=== PATIENT | male | born 1945 | race Caucasian/White ===

== ENCOUNTER 2020-11-29 10:24 | Outpatient (CLI) | payer MEDICARE, BC, SELFPAY ==
--- NOTE | 2020-11-29 10:30 | ECG_ITS ---
Measurements Intervals [place] Rate: 50 P: CT: 0 QRS: 35 QRSD: 86 T: 40 QT: 423 QTc: 389 Interpretive Statements ATRIAL FIBRILLATION WITH SLOW VENTRICULAR RESPONSE BASELINE ARTIFACT- I, II, III, AVR, AVL, AVF, V1-V6 ABNORMAL ECG Electronically Signed On 11-29-2020 10:47:43 CDT by Reji Trevizo D.O.
[2020-11-29 11:10] LABS: Anion Gap 5 mmol/L (8-16); Blood Urea Nitrogen 15 mg/dL (9-20); Calcium 9.6 mg/dL (8.4-10.2); Carbon Dioxide 31 mmol/L (22-30); Chloride 101 mmol/L (98-107); Estimated Glomerular Filt Rate > 60; Glucose 90 mg/dL (65-110); Potassium 5.1 mmol/L (3.4-5.0); Sodium 137 mmol/L (137-145)
== END 2020-11-29 10:25 | disposition home or self-care (01) ==
PROVIDERS: Anesthesiology; PCP Physician Assistant; Visit Provider Urology
DX: Z01.818 Encounter for other preprocedural examination (principal); Z79.899 Other long term (current) drug therapy; E78.00 Pure hypercholesterolemia, unspecified; R94.31 Abnormal electrocardiogram [ECG] [EKG]
CPT/HCPCS: 36415; 80048; 93005

== ENCOUNTER 2020-12-01 02:45 | Day surgery (SDC) | payer MEDICARE, BC, SELFPAY ==
[2020-11-28 13:40] VITALS: BMI 29.9
--- NOTE | 2020-11-30 12:36 | WPDANESEPPF ---
Anes - Initial Pre Proc Eval Procedure: Operation Date: 12/01/20 11:30 Proposed Procedures p Cystoscopy, Bilateral Retrograde Pyelography, Right Ureteroscopy, Right Ureteral Stent Insertion - Juanito Chavez MD Date/Time: 11/30/20 12:36 Surgeon: Juanito Chavez MD Pre Op Diagnosis: Hydronephrosis Patient Data Age: 75 Gender: M Height: 1.75 m Weight: 91.81 kg Allergies Allergy/AdvReac Type Severity Reaction Status Date / Time No Known Allergies Allergy Verified 12/01/20 10:06 Home Medications Medication Instructions Recorded Confirmed Type acetaminophen [Tylenol Extended 1,300 mg PO Q8H PRN 11/28/20 12/01/20 History Release] allopurinol 100 mg BID 11/28/20 12/01/20 History ascorbic acid (vitamin C) [Vitamin 500 mg PO DAILY 11/28/20 12/01/20 History C] atezolizumab 1,200 mg IV ONCE 11/28/20 12/01/20 History calcipotriene 1 applic TOPICAL DAILY PRN 11/28/20 12/01/20 History cholecalciferol (vitamin D3) 50 mcg PO DAILY 11/28/20 12/01/20 History clobetasol-emollient [Temovate E] 1 applic TOPICAL DAILY PRN 11/28/20 12/01/20 History furosemide 40 mg DAILY 11/28/20 12/01/20 History garlic 1,000 mg PO DAILY 11/28/20 12/01/20 History lutein 20 mg PO DAILY 11/28/20 12/01/20 History multivitamin [Multi-Vitamin] 1 tablet PO DAILY 11/28/20 12/01/20 History omega-3 fatty acids-vitamin E 1 cap DAILY 11/28/20 12/01/20 History [Fish Oil] ondansetron 4 mg PO Q6H PRN 11/28/20 12/01/20 History simvastatin 40 mg PO HS 11/28/20 12/01/20 History spironolactone 25 mg BID 11/28/20 12/01/20 History temozolomide [Temodar] See Rx Instructions .ROUTE .COMPLEX 11/28/20 12/01/20 History temozolomide [Temodar] See Rx Instructions .ROUTE .COMPLEX 11/28/20 12/01/20 History vitamin B complex 1 tablet PO DAILY 11/28/20 12/01/20 History vitamin E 400 unit PO DAILY 11/28/20 12/01/20 History Patient hx anesthesia problems: none Family hx anesthesia problems: none [facility] Past Medical History Medical History (Updated 11/30/20 @ 12:37 by Fede Fernandes DO) History of colon cancer Hyperlipidemia Hypertension Surgical History Surgical History (Updated 11/30/20 @ 12:37 by Fede Fernandes DO) History of surgery of liver partial liver removed and ablation due to metastasis of colorectal CA History of tonsillectomy Social History Social History Smoking status: Never smoker Second hand tobacco smoke exposure: No Alcohol intake: never Substance use: never Substance use type: does not use Living arrangements: with family Spiritual care concerns: No Anes - Eval Final PreProcedure Day of Procedure 11/30/20 12:36 Patient weight: overweight Heart: regular rate and rhythm Lungs: clear to auscultation and normal air movement Airway: Mallampati scale class II Neurological: alert and oriented Last oral intake: >/= 8 hours ASA classification: III Emergent: no Anesthetic plan: proceed Anesthesia type and monitoring: general LMA and standard monitoring Informed Consent: The patient's anesthetic plan and its attendant risks and benefits were discussed with the patient/family/POA. Questions were solicited and answers provided to the satisfaction of the patient/family/POA.
[2020-12-01] VITALS (8 sets, daily range): BP systolic 137–154; BP diastolic 65–78; PULSE 35–63; RESP 12–20; TEMP 36.2–36.4; O2SAT 98–100
--- NOTE | ~2020-12-01 | XR_ITS ---
EXAMINATION: XR retrograde pyelo w/stent BI EXAM DATE: 12/01/2020 13:58 INDICATION: RT Side Stent Bilat Retrograde . TECHNIQUE: Fluoroscopy used during XR retrograde pyelo w/stent BI performed by Dr. Juanito Chavez MD, urologist. The radiologist Tesfaye Reyes M.D. dictating this report of the image(s) available wa s not present for the procedure. Total fluoroscopic time of 129 seconds. The DAP for this procedure was 2209 radcm2. A total of 158 images sent to PACS from the exam. Cine run(s) available for revie w. FINDINGS: Right ureter was cannulated, injected. The distal 1/3rd of the right ureter is very narrow in caliber, the proximal 2/3rds has moderate dilation, and there is moderate caliectasis, hydronephr osis. Left ureter was then injected, distal most aspect is also very narrow with mild hydroureteronep hrosis proximal to this. Correlate with procedure note. IMPRESSION: Moderate right, mild left hydroureteronephrosis. Reviewed, dictated and finalized at location B.
--- NOTE | 2020-12-01 06:52 | WPDHPUPDATE1 ---
History and Physical Update Update Date/Time: 12/01/20 06:52 History and Physical has been reviewed, including an updated exam of the patient. There are NO changes in the patient's condition. Risks, benefits, and alternatives have been discussed and questions answered. Patient agrees to proceed with procedure.
[2020-12-01] MEDS: LACTATED RINGERS 1,000 ML 30 ML IV CONT (10:19)
--- NOTE | 2020-12-01 10:46 | SUR.PREOP ---
pt informed delay in procedure.
[2020-12-01] MEDS: ceFAZolin 2 GM/D5W 50 ML 2 GM/50 ML BAG IVPB (13:22)
[2020-12-01] MEDS: LIDOCAINE HCL 2% GEL UROJET 10 ML PKG MUCOUS MEM (13:53)
--- NOTE | 2020-12-01 14:05 | P.OP_ITS ---
Procedure Note - Detailed Date of Procedure 12/01/20 Pre-op Diagnosis Right hydronephrosis Post-op Diagnosis other (Right hydronephrosis due to extrinsic compression of the distal right ureter) Procedure Performed Cystoscopy, bilateral retrograde pyelography, right ureteroscopy and right ureteral stent placement Surgeon Juanito Chavez MD Anesthesia general Description of Procedure Patient brought to the operative suite where he has prepped and draped in routine sterile fashion while dorsal lithotomy position after the uneventful induction of a general LMA anesthetic. Cystoscopy is undertaken with a 19 F rigid cystoscope. No urethral strictures and only minimal hyperplasia of the prostate without small median lobe. Bladder mucosa is normal without hyperemia. There was no intravesical foreign body or neoplasm. He has a single orthotopic ureteral orifice with clear efflux bilaterally. Eight F bulb tip catheter was used to obtain bilateral retrograde pyelograms. The left ureteral pyelogram is normal without points of obstruction or filling defect. The right ureteral g shows an area narrowing in the distal right ureter. There were no filling defects at that site. This has the appearance of extrinsic compression or retroperitoneal fibrosis is the cause for obstruction. 0.035 in glidewire was advanced in the right renal pelvis. I attempted to dilate the distal ureter with an 8 F 10 F dilator but met with difficulty. This is a narrowing appears to be quite dense and woody. attempted to pass a 7.5 F flexible ureteral scope beyond the point of obstruction without success. Rigid ureteroscopy with a semi-rigid ureteral scope revealed smooth considered during without mucosal lini ng approach mint, consistent with extrinsic compression. This point and placed a 6 F stent on the right with a proximal coil in the renal pelvis and distal coil in the bladder. Scopes was removed he was taken recovery room good condition. Estimated Blood Loss 0 Drains Yes ( 6F right ureteral stent) Packing No Pathology none sent Complications No immediate complications Condition stable Disposition PACU
== END 2020-12-01 15:44 | disposition home or self-care (01) ==
PROVIDERS: PCP Physician Assistant; Visit Provider Urology
PROC: (CPT 52352; principal; 2020-12-01 11:30)
DX: N13.30 Unspecified hydronephrosis (principal); I10 Essential (primary) hypertension; E78.5 Hyperlipidemia, unspecified; Z85.038 Personal history of other malignant neoplasm of large intestine
CPT/HCPCS: 52332; 74420; A9270; C1758; C1769; C2617; J0690; J2250; J2405; J2704; J3010; J7120; Q9966

== ENCOUNTER 2021-04-17 07:40 | Outpatient (CLI) | payer MEDICARE, BC, SELFPAY ==
[2021-04-17 10:02] LABS: Anion Gap 9 mmol/L (8-16); Blood Urea Nitrogen 13 mg/dL (9-20); Calcium 9.2 mg/dL (8.4-10.2); Carbon Dioxide 25 mmol/L (22-30); Chloride 98 mmol/L (98-107); Estimated Glomerular Filt Rate > 60; Glucose 97 mg/dL (65-110); Potassium 4.6 mmol/L (3.4-5.0); Sodium 132 mmol/L (137-145)
== END 2021-04-17 07:41 | disposition home or self-care (01) ==
LOC: ANHSURGERY 07:42
PROVIDERS: Anesthesiology; PCP Internal Medicine Medical Oncology; Visit Provider Urology
DX: Z01.818 Encounter for other preprocedural examination (principal); I10 Essential (primary) hypertension
CPT/HCPCS: 36415; 80048

== ENCOUNTER 2021-04-20 01:16 | Day surgery (SDC) | payer MEDICARE, BC, SELFPAY ==
--- NOTE | 2021-04-11 16:20 | PM.HPGS ---
History of Present Illness History of Present Illness Consent: Risks, benefits, and alternatives have been discussed and questions answered. Patient agrees to proceed with procedure. 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 This obstruction is managed with indwelling ureteral stent since 11/2020. He presents today for his first ureteral stent exchange. Review of Systems Cardiovascular: Cardiovascular: Denies chest pain, Denies lightheadedness, Denies palpitations and Denies dyspnea Respiratory: Respiratory: Denies dyspnea Gastrointestinal: Gastrointestinal: Denies diarrhea, Denies nausea and Denies vomiting Genitourinary: Genitourinary: Denies hematuria and Denies dysuria Endocrine: Endocrine: Denies palpitations PMFSH Past Medical History Medical History History of colon cancer Hyperlipidemia Hypertension Surgical History Surgical History History of surgery of liver partial liver removed and ablation due to metastasis of colorectal CA History of tonsillectomy Social History Social History Smoking status: Never smoker Second hand tobacco smoke exposure: No Alcohol intake: never Substance use: never Substance use type: does not use Spiritual care concerns: No Meds Home Medications and Allergies Home Medications Medication Instructions Recorded Confirmed Type acetaminophen 1,300 mg PO Q8H PRN 11/28/20 12/01/20 History allopurinol 100 mg BID 11/28/20 12/01/20 History ascorbic acid (vitamin C) [Vitamin 500 mg PO DAILY 11/28/20 12/01/20 History C] atezolizumab 1,200 mg IV ONCE 11/28/20 12/01/20 History calcipotriene 1 applic TOPICAL DAILY PRN 11/28/20 12/01/20 History cholecalciferol (vitamin D3) 50 mcg PO DAILY 11/28/20 12/01/20 History clobetasol-emollient 1 applic TOPICAL DAILY PRN 11/28/20 12/01/20 History furosemide 40 mg DAILY 11/28/20 12/01/20 History garlic 1,000 mg PO DAILY 11/28/20 12/01/20 History lutein 20 mg PO DAILY 11/28/20 12/01/20 History multivitamin 1 tablet PO DAILY 11/28/20 12/01/20 History omega-3 fatty acids-vitamin E 1 cap DAILY 11/28/20 12/01/20 History ondansetron 4 mg PO Q6H PRN 11/28/20 12/01/20 History simvastatin 40 mg PO HS 11/28/20 12/01/20 History spironolactone 25 mg BID 11/28/20 12/01/20 History temozolomide See Rx Instructions .ROUTE .COMPLEX 11/28/20 12/01/20 History temozolomide [Temodar] See Rx Instructions .ROUTE .COMPLEX 11/28/20 12/01/20 History vitamin B complex 1 tablet PO DAILY 11/28/20 12/01/20 History vitamin E 400 unit PO DAILY 11/28/20 12/01/20 History cephalexin 500 mg PO Q8H #9 cap 12/01/20 Rx hydrocodone-acetaminophen 1 - 2 tablet PO Q6H PRN #20 tablet 12/01/20 Rx Allergies Allergy/AdvReac Type Severity Reaction Status Date / Time No Known Allergies Allergy Verified 12/01/20 10:06 Exam Const: General: no acute distress Resp: Effort & Inspection: normal respiratory effort GI: Inspection: non-distended GI Palp: No abdominal tenderness and No Guarding due to palpation present (GI) Auscultation: normal bowel sounds Assessment and Plan Assessment and plan (1) Hydronephrosis, right: Code(s): N13.30 - Unspecified hydronephrosis Status: Acute Assessment and Plan: Cystoscpy, right ureteroscopy with stent removal and replacement.
[2021-04-14 13:18] VITALS: BMI 26.7
--- NOTE | 2021-04-14 13:25 | PC.NURSE ---
Report to the Outpatient Waiting Room, entrance under the green pavilion located off [facility], at time _0630 on date __04/20/21 . OR Time: . - You and your visitor will be asked a series of questions to screen for COVID 19 for your protection. - A mask is required within the hospital. - Only one visitor is allowed at this time. Patient visitors will be guided where to wait when not with patient. Preoperative COVID Testing Requirements: No COVID Test needed if: (proof is required; if not received patient will have Rapid Test prior to entry) - Patient has received COVID Vaccine at least 14 days prior to procedure date or - Patient has positive COVID test result within last 90 days of surgery date. COVID Test needed if above criteria is not met If not COVID vaccinated a COVID test must be conducted within 72 hours of surgery and patient is asked to isolate self from time of testing until procedure. You will go to the [facility] for your COVID testing. The [facility] site is located at the corner of [address] from [facility]. You will only be called if COVID results are positive and your surgeon may reschedule your elective surgery date. Patients may have clear liquids (water, carbonated beverages, clear teas, apple juice) until 3 hours prior to surgery with a maximum of 20 ounces. - No food from midnight until time of surgery - Infants may have breast milk until 4 hours before surgery, formula 6 hours prior to surgery. - Children will be allowed to drink immediately following surgery. If applicable, please bring a bottle or sippy cup to assist with drinking. Juice, water, soda, and popsicles are readily available. For infants on formula, please bring formula the day of surgery. Pacifiers are allowed. Take the following medications with a SIP of water the morning of surgery: __NONE Medications to discontinue per physician ____ALL VITAMINS AND SUPPLEMENTS 3 DAYS PRE OP Date to take last dose___04/16/21 Please no make-up, nail italian, hairspray, perfume, deodorant, or body powder the day of surgery. No jewelry (including any body piercings) or valuables the day of surgery, leave them at home. Please take a shower or bath the night before, or the morning of, surgery with an antibacterial soap. Wear comfortable, loose fitting clothing. Children are encouraged to wear pajamas. - Jewelry must be removed prior to entering the operating room. Rings and piercings that are not removed may be cut off. - The hospital will not accept responsibility for valuables. - Please leave all valuables, including medications, at home the day of surgery. If you are going home after surgery, a licensed pile driver engineer must drive you home. - NO public transportation without another adult. - We recommend that an adult stay with you for 24 hours following discharge. - We also recommend that you do not drive, make important decision, drink alcoholic beverages, or take any drugs that were not prescribed by your health care provider for at least 24 hours after your discharge time. For Pediatric surgeries, we recommend two adults accompany the child home (only one inside the building at this time). Follow any additional instructions given to you from your surgeon. Telephone instructions given to PATIENT and asked if any additional questions and then verbalized understanding. Patient advised to call surgeon office or pre surgery nurse liaison [phone] if any additional questions.
--- NOTE | ~2021-04-20 | XR_ITS ---
EXAMINATION: XR stent kub - surgery EXAM DATE: 04/20/2021 09:06 INDICATION: Right stent replacement. TECHNIQUE: Fluoroscopy used during XR stent kub - surgery performed by Dr. Juanito Chavez MD. R adiologist was not present for the imaging or procedure. Total fluoroscopic time of 28 seconds. The DAP for this procedure was 0.3 mGym2. A total of 6 images sent to PACS from the exam. FINDINGS: Images taken during staged of right ureteral stent replacement. Correlate with procedure note. IMPRESSION: Fluoroscopy used during right ureteral stent replacement. Reviewed, dictated and finalized at location B. 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
--- NOTE | 2021-04-20 06:12 | WPDHPUPDATE1 ---
History and Physical Update Update Date/Time: 04/20/21 06:12 History and Physical has been reviewed, including an updated exam of the patient. There are NO changes in the patient's condition. Risks, benefits, and alternatives have been discussed and questions answered. Patient agrees to proceed with procedure.
--- NOTE | 2021-04-20 07:16 | P.PNAN_ITS ---
Anes - Initial Pre Proc Eval Procedure: Operation Date: 04/20/21 08:30 Proposed Procedures p Cystoscopy with Right Stent Exchange - Juanito Chavez MD Date/Time: 04/20/21 07:16 Surgeon: Juanito Chavez MD Pre Op Diagnosis: right hydronephrosis Patient Data Age: 75 Gender: M Height: 1.75 m Weight: 82.1 kg Allergies Allergy/AdvReac Type Severity Reaction Status Date / Time No Known Allergies Allergy Verified 04/20/21 06:56 Home Medications Medication Instructions Recorded Confirmed Type acetaminophen 1,300 mg PO Q8H PRN 11/28/20 04/20/21 History allopurinol 100 mg PO BID 11/28/20 04/20/21 History ascorbic acid (vitamin C) [Vitamin 500 mg PO DAILY 11/28/20 04/20/21 History C] calcipotriene 1 applic TOPICAL DAILY PRN 11/28/20 04/20/21 History cholecalciferol (vitamin D3) 50 mcg PO DAILY 11/28/20 04/20/21 History clobetasol-emollient 1 applic TOPICAL DAILY PRN 11/28/20 04/20/21 History furosemide 40 mg PO DAILY 11/28/20 04/20/21 History garlic 1,000 mg PO DAILY 11/28/20 04/20/21 History lutein 20 mg PO DAILY 11/28/20 04/20/21 History multivitamin 1 tablet PO DAILY 11/28/20 04/20/21 History omega-3 fatty acids-vitamin E 1 cap PO DAILY 11/28/20 04/20/21 History simvastatin 40 mg PO HS 11/28/20 04/20/21 History spironolactone 25 mg PO BID 11/28/20 04/20/21 History vitamin B complex 1 tablet PO DAILY 11/28/20 04/20/21 History vitamin E 400 unit PO DAILY 11/28/20 04/20/21 History Patient hx anesthesia problems: none Family hx anesthesia problems: none Results Review: All pre-operative results and documents have been reviewed as part of the pre-operative evaluation. [facility] Past Medical History Medical History History of colon cancer Hyperlipidemia Hypertension Surgical History Surgical History History of surgery of liver partial liver removed and ablation due to metastasis of colorectal CA History of tonsillectomy Social History Social History Smoking status: Never smoker Second hand tobacco smoke exposure: No Alcohol intake: never Substance use: never Substance use type: does not use Living arrangements: with family Spiritual care concerns: No Anes - Eval Final PreProcedure Day of Procedure 04/20/21 07:16 Patient weight: overweight Heart: regular rate and rhythm Lungs: clear to auscultation and normal air movement Airway: Mallampati scale class II Neurological: alert and oriented Last oral intake: >/= 8 hours ASA classification: II Emergent: no Anesthetic plan: proceed Anesthesia type and monitoring: general GIVS and standard monitoring Results Review: All pre-operative results and documents have been reviewed as part of the pre-operative evaluation. Informed Consent: The patient's anesthetic plan and its attendant risks and benefits were discussed with the patient/family/POA. Questions were solicited and answers provided to the satisfaction of the patient/family/POA.
[2021-04-20 07:18] VITALS: BP 116/78; PULSE 74; RESP 20; TEMP 36.3; O2SAT 100; BMI 26.4
[2021-04-20] MEDS: LACTATED RINGERS 1,000 ML 30 ML IV CONT (07:28)
[2021-04-20] MEDS: ceFAZolin 2 GM/D5W 50 ML 2 GM/50 ML BAG IVPB (08:29)
[2021-04-20] MEDS: LIDOCAINE HCL 2% GEL UROJET 10 ML PKG MUCOUS MEM (08:48)
[2021-04-20] MEDS: BUPIVACAINE/EPINEPHRINE 0.25% 10 ML VIAL INFILTRATE (08:48)
[2021-04-20] MEDS: NEOMYCIN/POLYMYXIN/BACITRACIN OINTMENT 15 GM TUBE 1 APPLIC TOPICAL (08:57)
--- NOTE | 2021-04-20 09:03 | W.PM.PROC2 ---
Procedure Note - Detailed Date of Procedure 04/20/21 Pre-op Diagnosis Right hydronephrosis, scrotal wall mass Post-op Diagnosis same Procedure Performed 1. Cystoscopy with right ureteral stent exchange 2. Excision of a scrotal wall mass Surgeon Juanito Chavez MD Anesthesia MAC Findings 1. Minimal encrustation on the indwelling stent which was placed in November 2020 2. 3 cm solid right scrotal wall mass. Description of Procedure Patient is brought to the operative suite prepped draped in routine sterile fashion while in dorsal lithotomy position after the uneventful administration of systemic sedation. 0.25% Marcaine with epinephrine is injected around this mass involving the right lateral scrotal wall. An elliptical incision is made around this mass and using electrocautery the mass is dissected in its entirety without encroaching into the tunica vaginalis. Hemostasis obtained with electrocautery and the skin is closed with a running 4-0 Vicryl. I then placed a 19 F rigid cystoscope. There was no urethral stricture and minimal prostatic hyperplasia. There is slight edema around the right ureteral orifice where his right ureteral stent was noted. There was no intravesical neoplasm. Stent is removed and a new 6 F variable length stent is positioned the proximal coil in the renal pelvis and distal coil in the bladder. There was minimal encrustation of the stent after having placed 4 months ago. I will plan on replacing the stent again in 6 months Estimated Blood Loss 0 Drains Yes Packing No Pathology yes Complications No immediate complications Condition stable Disposition PACU
[2021-04-20 09:15] VITALS: BP 96/48; PULSE 88; RESP 20; O2SAT 100
[2021-04-20 09:45] VITALS: BP 112/72
[2021-04-20 10:30] VITALS: BP 120/62
== END 2021-04-20 10:55 | disposition home or self-care (01) ==
PROVIDERS: PCP Physician Assistant; Visit Provider Urology
PROC: (CPT 52352; principal; 2021-04-20 08:30)
DX: C7B.09 Secondary carcinoid tumors of other sites (principal); C26.9 Malignant neoplasm of ill-defined sites within the digestive system; N13.30 Unspecified hydronephrosis; I10 Essential (primary) hypertension; E78.5 Hyperlipidemia, unspecified; Z85.038 Personal history of other malignant neoplasm of large intestine; Z85.05 Personal history of malignant neoplasm of liver; Z79.891 Long term (current) use of opiate analgesic
CPT/HCPCS: 52332; 11624; 88304; 88342; A9270; C1769; C2617; J0690; J2704; J7120

== ENCOUNTER 2021-09-17 03:50 | Inpatient (IN) | payer MEDICARE, BC, SELFPAY ==
[2021-09-17] VITALS (8 sets, daily range): BP systolic 105–118; BP diastolic 60–73; PULSE 65–78; RESP 16–18; TEMP 36.3–36.8; O2SAT 96–99; BMI 28.1
--- NOTE | ~2021-09-17 | XR_ITS ---
XR chest 1V portable DATE: 09/17/2021 06:01 INDICATION: Colon cancer TECHNIQUE: Portable upright AP chest on 09/17/2021 at 0556 hours COMPARISON: None FINDINGS: Right Port-A-Cath catheter tip situated near the superior cavoatrial junction. There is mild infiltrate or atelectasis in the right mid and both lower lung zones. Cannot exclude mi nimal pleural effusions. No pulmonary vascular congestion or pneumothorax. Heart size is borderline. Is aortic calcification and unfolding. Diffuse osteopenia. IMPRESSION: Mild infiltrate or atelectasis in right mid and both lower lung zones Right Port-A-Cath Reviewed, dictated and finalized at location A. IMPRESSION: Mild infiltrate or atelectasis in right mid and both lower lung zon es Right Port-A-Cath
--- NOTE | ~2021-09-17 | US_ITS ---
EXAMINATION: US pelvic complete DATE: 09/18/2021 08:14 INDICATION: Bladder hematoma. TECHNIQUE: Multiple grayscale and Doppler ultrasound images of the pelvis were obtained. COMPARISON: None FINDINGS: There is a Chan catheter in the bladder. There is gas in the bladder lumen. There are echo es adjacent to the Chan catheter. IMPRESSION: 1. Echoes adjacent to the Chan catheter, which may be artifact and/or hematoma. Reviewed, dictated and finalized at location A. IMPRESSION: 1. Echoes adjacent to the Chan catheter, which may be artifact and/or hematoma .
--- NOTE | 2021-09-17 04:09 | PC.NURSE ---
This patient, Flavio Méndez, was admitted to [facility] Surg Room 320-01. Patient/family oriented to hospital policies and general routines including ID bracelet, bed and alarms, visiting hours, pain management, procedures, bathroom and other care routines, personal items, smoking policy, room service/diet, and visiting hours. Information on how to activate the Rapid Response Team has been discussed. Patient/Family are encouraged to report perceived risks to care and to ask questions if they do not understand what they are told or what they should do.
--- NOTE | 2021-09-17 04:44 | PM.IMHP ---
H&P: HPI History of Present Illness Date/Time: 09/17/21 04:44 Chief Complaint: Syncope Narrative: This is a 76-year-old male with past medical history significant for colon CA patient is status post nephrostomy due to extrinsic mass compression of ureters. Patient had been recently discharged from [facility]. Patient with significant weight loss and generalized weakness. Today patient had a syncopal episode and was taken back to the emergency room where he was found to have elevated creatinine. Patient is being transferred to our hospital for urology consult. Patient had a temperature of 102?. States that has no recollection of events. Preliminary workup is significant for hemoglobin of 8, hematocrit is 26, MCV is 99, creatinine is 1.9. Patient denies any pain at this time. Review of Systems Review of Systems: Generalized weakness, weight loss. Constitutional: Constitutional: Reports fatigue, Reports fever(s), Reports lethargy and Reports weakness Eyes: Eyes: Denies change in vision ENT: Denies dysphagia, Denies vertigo, Denies dizziness and Denies odynophagia Cardiovascular: Cardiovascular: Reports syncope Respiratory: Respiratory: Denies cough Gastrointestinal: Gastrointestinal: Denies abdominal pain, Denies dyspepsia and Denies heartburn Genitourinary: Genitourinary: Reports hematuria Musculoskeletal: Musculoskeletal: Denies arthralgias Integumentary/Breasts: Skin/Breast: Denies rash Neurologic: Denies focal weakness and Denies Sensory deficit (Neuro) Psychiatric: Psychiatric: Reports no additional psychiatric complaints and Reports as per HPI Endocrine: Endocrine: Denies cold intolerance, Denies fatigue, Denies flushing, Denies heat intolerance, Denies polyphagia, Denies polydipsia and Denies palpitations Hematologic/Lymphatic: Hematologic/Lymphatic: Reports no additional hematologic/lymphatic complaints and Reports as per HPI Allergic/Immunologic: Allergic/Immunologic: Reports no additional allergic/immunologic complaints and Reports as per HPI PMFSH Past Medical History Medical History (Updated 09/17/21 @ 05:25 by Ronaldo Rosales MD) History of colon cancer Hyperlipidemia Hypertension Surgical History Surgical History (Updated 09/17/21 @ 05:22 by Ronaldo Rosales MD) History of surgery of liver partial liver removed and ablation due to metastasis of colorectal CA History of tonsillectomy Social History Social History Smoking status: Never smoker Second hand tobacco smoke exposure: No Alcohol intake: never Substance use: never Substance use type: does not use Gender identity (if verbalized by the patient): Male Sexual Orientation (if Verbalized by the Patient): Straight or Heterosexual Spiritual care concerns: No Meds Home Medications and Allergies Home Medications Medication Instructions Recorded Confirmed Type acetaminophen 650 mg 1,300 mg PO Q8H PRN Pain 11/28/20 04/20/21 History tablet,extended release allopurinol 100 mg tablet 100 mg PO BID 11/28/20 04/20/21 History ascorbic acid (vitamin C) 500 mg 500 mg PO DAILY 11/28/20 04/20/21 History tablet (Vitamin C) calcipotriene 0.005 % topical cream 1 applic topical DAILY PRN Skin 11/28/20 04/20/21 History Irritation clobetasol-emollient 0.05 % 1 applic topical DAILY PRN Skin 11/28/20 04/20/21 History topical cream Irritation lutein 20 mg capsule 20 mg PO DAILY 11/28/20 04/20/21 History multivitamin 1 tablet PO DAILY 11/28/20 04/20/21 History simvastatin 40 mg tablet 40 mg PO HS 11/28/20 04/20/21 History spironolactone 25 mg tablet 25 mg PO BID 11/28/20 04/20/21 History vitamin B complex 1 tablet PO DAILY 11/28/20 04/20/21 History vitamin E 400 unit capsule 400 unit PO DAILY 11/28/20 04/20/21 History albuterol sulfate 90 mcg/actuation 2 puff inhalation Q4H PRN 09/17/21 09/17/21 History aerosol inhaler SOB/Wheezing aspirin 81 mg
[2021-09-17 04:45] LABS: Basophils Percent Auto 0.3 % (0.2-1.2); Eosinophils Absolute Auto 0.2 K/mm3 (0-0.3); Eosinophils Percent Auto 1.5 % (0-4.4); Hematocrit 26.1 % (42.0-52.0); Hemoglobin 8.1 g/dL (14.0-18.0); Immature Granulocyte Absolute 0.24 K/mm3 (0.00-0.031); Immature Granulocyte Percent A 1.9 % (0-0.5); Lymphocytes Percent Auto 8.1 % (18.3-44.2); Mean Corpuscular Hemoglobin 30.9 pg (26-34); Mean Corpuscular Volume 99.6 fl (80-100); Mean Platelet Volume 9.2 fl (7.4-10.4); Monocytes Absolute Auto 1.1 K/mm3 (0.1-0.6); Monocytes Percent Auto 9.1 % (2.6-8.5); Neutrophils Absolute Auto 9.8 K/mm3 (1.3-6.7); Neutrophils Percent Auto 79.1 % (45.5-73.1); Platelet Count Result 174 k/mm3 (150-375); Red Blood Count 2.62 M/mm3 (4.6-6.20); Red Cell Distribution Width 18.5 % (11.5-14.5); White Blood Count 12.3 K/mm3 (4.5-10.0)
[2021-09-17 04:55] LABS: INR 1.3; Prothrombin Time 15.7 Seconds (11.1-14.7)
[2021-09-17 04:56] LABS: Partial Thromboplastin Time 42.6 SECONDS (22.3-36.8)
[2021-09-17 04:58] LABS: Alanine Aminotransferase 17 U/L (6-50); Albumin Level 2.7 g/dL (3.5-5.1); Alkaline Phosphatase 105 U/L (38-126); Anion Gap 0 mmol/L (8-16); Aspartate Amino Transferase 48 U/L (17-59); Bilirubin,Total 0.3 mg/dL (0.2-1.3); Blood Urea Nitrogen 25 mg/dL (9-20); Calcium 8.3 mg/dL (8.4-10.2); Carbon Dioxide 35 mmol/L (22-30); Chloride 96 mmol/L (98-107); Estimated Glomerular Filt Rate 35; Glucose 88 mg/dL (65-110); Potassium 4.4 mmol/L (3.4-5.0); Sodium 131 mmol/L (137-145)
[2021-09-17] MEDS: DEXTROSE 5%/0.45% SOD CHL 1,000 ML 100 ML IV CONT ×2 (05:39→22:12)
[2021-09-17] MEDS: VITAMIN E 400 UNIT CAPSULE PO (08:42)
[2021-09-17] MEDS: ASPIRIN 81 MG ENTERIC TABLET PO (08:43)
[2021-09-17] MEDS: MAGNESIUM OXIDE 400 MG TABLET 800 MG PO ×2 (08:43→17:42)
[2021-09-17] MEDS: OMEGA 3 POLYUNSAT FATTY ACIDS 1 GM CAP PO (08:43)
[2021-09-17] MEDS: MULTIVITAMINS THERAPEUTIC TAB (*BKC) 1 TABLET PO (08:43)
[2021-09-17] MEDS: CYPROHEPTADINE HCL 4 MG TABLET PO ×2 (08:43→17:43)
[2021-09-17] MEDS: PANTOPRAZOLE 40 MG TABLET PO ×2 (08:43→17:43)
[2021-09-17] MEDS: FINASTERIDE 5 MG TABLET PO (08:43)
[2021-09-17] MEDS: allopurinoL 100 MG TABLET 200 MG PO (08:43)
[2021-09-17] MEDS: CHOLECALCIFEROL 1,000 UNITS TABLET 2000 UNITS PO (08:43)
[2021-09-17] MEDS: ASCORBIC ACID 500 MG TABLET PO (08:43)
[2021-09-17] MEDS: VITAMIN B COMPLEX CAPSULE 1 CAP PO (08:44)
[2021-09-17] MEDS: SPIRONOLACTONE 25 MG TABLET PO ×2 (08:44→17:42)
[2021-09-17] MEDS: ACETAMINOPHEN 500 MG TABLET 1000 MG BY MOUTH (11:25)
[2021-09-17 11:55] LABS: Hematocrit 24.9 % (42.0-52.0); Hemoglobin 7.8 g/dL (14.0-18.0)
--- NOTE | 2021-09-17 12:04 | WPDURCON ---
Assessment and Plan Assessment and plan (1) Hematuria: Code(s): R31.9 - Hematuria, unspecified Status: Acute Assessment and Plan: History of radiation to pelvis, bilateral ureteral stents, pelvic malignancy, urinary retention and urinary tract infection all of which could be contributory Will need cystoscopy to further evaluate, for now continue CBI as below [address] Chan catheter was placed by me at the bedside. Initial return of greater than 1 L of bloody urine and about 50 cc of clot irrigated out of the bladder. After hand irrigation and clot was removed no further clot returned urine was very light pink. Chan connected to continuous bladder irrigation at a slow rate and was light pink. Discussed with Nursing to titrate rate to keep urine light pink or light red. If there is clot in catheter seems to stop draining would stop The inflow and hand irrigate to dislodge any clot. IF catheter patency is restored restart CBI. If patency cannot be restored notify our service. (2) AJITH (acute kidney injury): Code(s): N17.9 - Acute kidney failure, unspecified Status: Acute Assessment and Plan: Creatinine elevated 1.9. Patient had bilateral hydronephrosis in the setting of clot retention and ureteral stents on CT from [facility] last night. Suspect this could be lower tract obstruction and not stent malfunction given stents were placed in June and typically only changed every 6 months. For now would monitor creatinine trend with a patent Chan catheter in place. If down trends, likely can avoid stent exchange, however if does not down trend despite patent catheter could consider stent exchange at some point during hospital stay. (3) Urinary retention: Code(s): R33.9 - Retention of urine, unspecified Status: Acute Assessment and Plan: Likely from clot and workup as above during hospital stay (4) Urinary tract infection: Code(s): N39.0 - Urinary tract infection, site not specified Status: Acute Assessment and Plan: Was given. Antibiotics for UTI until culture returns as this could be a source of his hematuria in the setting of a radiated bladder Urology Consult Note HPI Date Seen: 09/17/21 Requesting Physician: Frankie Steward MD Primary Care Provider: Kristie Matias, PA Consult Narrative Narrative: Flavio Méndez is a 76 year old male with history of metastatic colon cancer status post surgical resection, radiation to the pelvis and liver, chemotherapy and known bilateral ureteral obstruction likely due to malignancy with chronic indwelling ureteral stents (last replaced June 2021 and typically changed every 6 months) admitted via emergency department last night for gross hematuria, hydronephrosis, and a potentially unwitnessed fall at home. Per report the patient went to the [facility] Emergency Room last night after likely having in on witnessed fall with possible loss of consciousness although his was up stairs. He did not appear to his head per her report, but she sent him to the emergency room for further evaluation. She also reports approximately 2 days hematuria while prior to ER visit with no perceived change in his baseline incontinence. No major dysuria, fevers, chills, or other concerning findings. At the [facility] ER the patient was found to have bilateral hydronephrosis, a distended bladder with clot within. His creatinine was 1.9 from a baseline appearing closer to 1. On my evaluation, the patient was lying in bed, no apparent distress. No complaint of flank pain, abdominal pain. Reports ongoing incontinence with clots. Reports some feeling of suprapubic fullness and urge to void. With suprapubic pressure 30 of blood clot was able to be expressed per urethra along with bloody appearing urine. Review of Systems Review of Systems: All systems reviewed & are unremarkable except as noted in HPI and below PMFS
--- NOTE | 2021-09-17 12:54 | PM.IMPN ---
Progress Note: A&P Assessment and Plan (1) Hydronephrosis, right: Code(s): N13.30 - Unspecified hydronephrosis Status: Acute Assessment and Plan: Bilateral hydronephrosis with urinary retention probably blood clot in the bladder CT abdomen and pelvis done in the [facility] the report of which is pending which was later obtained Bilateral ureteral stents are in place severe bilateral hydronephrosis and hydroureter the distal in the distant appear to be located within the soft tissue mass filling the retro physical space which appears to have increased since the prior study. The stents may be outside of the bladder. Koul distance of within the bladder there is soft tissue and her high numerous at the base of the bladder which could be all region further stent obstruction. Neurology consulted. He will need of Chan catheter placed for decompression. With penile bleed will have Urology base Chan catheter. Bladder scan done at bedside during the visit this morning showed approximately 300 cc of urine. Will treat for UTI May also need bladder irrigation (2) Colon cancer: Code(s): C18.9 - Malignant neoplasm of colon, unspecified Status: Acute Assessment and Plan: Follow-up in outpatient setting Shows post colostomy placement (3) History of surgery of liver: Code(s): Z98.890 - Other specified postprocedural states Status: Acute Assessment and Plan: Unchanged (4) Hypertension: Code(s): I10 - Essential (primary) hypertension Status: Acute Assessment and Plan: Continue home medications hold spironolactone due to AJITH (5) New onset atrial fibrillation: Code(s): I48.91 - Unspecified atrial fibrillation Status: Acute Assessment and Plan: Slow ventricular response Continue to monitor (6) Rectal bleeding: Code(s): K62.5 - Hemorrhage of anus and rectum Status: Acute Assessment and Plan: Continue to monitor Transfuse as needed Coags reviewed With the colostomy not sure how far his rectal vault is present. Will consult GI for further evaluation CT abdomen pelvis done in the [facility] showed extensive soft tissue in the pelvis obscuring the margin of the rectum and posterior bladder wall and feeling the presacral space most likely represents colorectal carcinoma. Metastatic static disease finding were also noted for example large intramuscular mass within the left hip adductors that measures 6.1 x 7.7 cm increased in size from prior study. Perianal/perineal nodularity primary along the right of the gluteal fold as well as 3.2 x 2.7 cm mass anteriorly to the left pubis are compatible with metastatic implants. 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 3.5 x 5.3 cm right epicardial fat partially calcified mass also suspect for metastasis. There are numerous mildly enlarged retroperitoneal lymph nodes which are indeterminate but potentially metastatic given other findings. He is status post right hemicolectomy (7) AJITH (acute kidney injury): Code(s): N17.9 - Acute kidney failure, unspecified Status: Acute Assessment and Plan: Likely to be postobstructive uropathy Obstructive IV fluid Monitor renal function Urology consultation (8) Anemia of chronic disease: Code(s): D63.8 - Anemia in other chronic diseases classified elsewhere Status: Acute Assessment and Plan: Secondary to malignancy Transfuse as needed Hemoglobin stable currently will continue to monitor H&H Plan DVT prophylaxis contraindicated due to current bleeding issues Subjective Date/time seen: 09/17/21 12:54 Interval history: HPI:This is a 76-year-old male with past medical history significant for colon CA patient is status post nephrostomy due to extrinsic mass compression of ureters.? Patient
--- NOTE | 2021-09-17 13:53 | PCCCNOTE ---
On 09/17/21, the student, [Ashley Lopez], provided care and completed [facility] documentation on this patient. I have reviewed the student's documentation and agree with the findings.
--- NOTE | 2021-09-17 15:04 | PCCCNOTE ---
On 09/17/21, the student, [Ashley Lopez], provided care and completed [facility] documentation on this patient. I have reviewed the student's documentation and agree with the findings.
[2021-09-17] MEDS: LIDOCAINE HCL 2% GEL UROJET 10 ML PKG MUCOUS MEM (17:41)
[2021-09-17 18:10] LABS: Hematocrit 25.2 % (42.0-52.0); Hemoglobin 7.7 g/dL (14.0-18.0)
[2021-09-17] MEDS: TAMSULOSIN HCL 0.4 MG CAPSULE PO (21:09)
[2021-09-17] MEDS: SIMVASTATIN 20 MG TABLET 40 MG PO (21:09)
[2021-09-17] MEDS: MORPHINE SULFATE (*CRX) 2 MG/ML INJ IV PUSH (22:06)
[2021-09-17 23:04] LABS: Hemoglobin 8.6 g/dL (14.0-18.0)
[2021-09-18] VITALS (7 sets, daily range): BP systolic 98–111; BP diastolic 60–65; PULSE 70–99; RESP 14–18; TEMP 36.3–37.2; O2SAT 94–98; BMI 28.1
[2021-09-18 05:49] LABS: Basophils Percent Auto 0.3 % (0.2-1.2); Eosinophils Absolute Auto 0.1 K/mm3 (0-0.3); Eosinophils Percent Auto 0.9 % (0-4.4); Hematocrit 23.8 % (42.0-52.0); Hemoglobin 7.7 g/dL (14.0-18.0); Immature Granulocyte Absolute 0.19 K/mm3 (0.00-0.031); Immature Granulocyte Percent A 1.3 % (0-0.5); Lymphocytes Absolute Auto 0.59 K/mm3 (0.9-3.2); Lymphocytes Percent Auto 4.1 % (18.3-44.2); Mean Corpuscular HGB Conc 32.4 g/dl (32-36); Mean Corpuscular Hemoglobin 31.7 pg (26-34); Mean Corpuscular Volume 97.9 fl (80-100); Mean Platelet Volume 9.6 fl (7.4-10.4); Monocytes Absolute Auto 0.6 K/mm3 (0.1-0.6); Monocytes Percent Auto 4.1 % (2.6-8.5); Neutrophils Absolute Auto 12.7 K/mm3 (1.3-6.7); Neutrophils Percent Auto 89.3 % (45.5-73.1); Platelet Count Result 167 k/mm3 (150-375); Red Blood Count 2.43 M/mm3 (4.6-6.20); Red Cell Distribution Width 18.4 % (11.5-14.5); White Blood Count 14.3 K/mm3 (4.5-10.0)
[2021-09-18 05:59] LABS: Alanine Aminotransferase 17 U/L (6-50); Albumin Level 2.4 g/dL (3.5-5.1); Alkaline Phosphatase 97 U/L (38-126); Anion Gap 1 mmol/L (8-16); Aspartate Amino Transferase 41 U/L (17-59); Bilirubin,Total < 0.1 mg/dL (0.2-1.3); Blood Urea Nitrogen 21 mg/dL (9-20); Calcium 7.8 mg/dL (8.4-10.2); Carbon Dioxide 32 mmol/L (22-30); Chloride 100 mmol/L (98-107); Estimated CRCL calculation 35 ml/min; Estimated Glomerular Filt Rate 40; Glucose 115 mg/dL (65-110); Magnesium 1.2 mg/dL (1.6-2.3); Potassium 4.1 mmol/L (3.4-5.0); Sodium 133 mmol/L (137-145)
[2021-09-18 06:26] LABS: Anisocytosis 1+ (NORMAL); Platelet Estimate Adequate (Adequate); Poikilocytosis 1+ (NORMAL)
--- NOTE | 2021-09-18 07:03 | WPDUROPN2 ---
Progress Note: A&P Assessment and Plan (1) Urinary retention: Code(s): R33.9 - Retention of urine, unspecified Status: Acute (2) Hematuria: Code(s): R31.9 - Hematuria, unspecified Status: Acute (3) AJITH (acute kidney injury): Code(s): N17.9 - Acute kidney failure, unspecified Status: Acute Assessment and Plan: Renal function slightly improved today. Urine clear with CBI but bloody with hand-irrigation -> likely due to combination of pelvic radiation, indwelling bilateral uretal stent, pelvic mass and possible UTI. Will get pelvic u/s to assess for clot retention. Continue Ceftriaxone, for now. Subjective Subjective Date/Time Seen: 09/18/21 07:03 Comfortable, no complaints Exam : Male General Exam: Yes normal external exam Urinary Catheter: Urinary Catheter: urine red Objective Data Vital Signs Vital Signs: Vital Signs - 24 hr 09/17/21 08:00 09/17/21 08:00 09/17/21 12:00 Temperature 98.2 F 97.4 F L Pulse Rate 72 72 77 Respiratory Rate 16 16 16 Blood Pressure 118/73 109/60 Pulse Oximetry 98 98 99 Oxygen Delivery Room Air 09/17/21 16:01 09/17/21 16:00 09/17/21 12:00 Temperature 98.1 F Pulse Rate 65 70 78 Respiratory Rate 16 Blood Pressure 105/64 Pulse Oximetry 99 Oxygen Delivery 09/17/21 19:31 09/17/21 20:00 09/17/21 20:00 Temperature 97.5 F L Pulse Rate 74 74 72 Respiratory Rate 16 16 Blood Pressure 113/61 Pulse Oximetry 97 97 Oxygen Delivery Room Air 09/18/21 00:00 09/18/21 00:00 09/18/21 04:00 Temperature 97.6 F Pulse Rate 92 99 94 Respiratory Rate 14 Blood Pressure 99/60 L Pulse Oximetry 94 Oxygen Delivery 09/18/21 04:47 Temperature 98.9 F Pulse Rate 92 Respiratory Rate 14 Blood Pressure 101/65 Pulse Oximetry 95 Oxygen Delivery Intake/Output Intake/Output: Intake & Output 09/15/21 09/16/21 09/17/21 09/18/21 23:59 23:59 23:59 23:59 Intake Total 1540 3200 Output Total 6000 Balance 1540 -2800 Meds/Results Medications: Active Medications Generic Name Dose Route Start Last Admin Trade Name Freq PRN Reason Stop Dose Admin Acetaminophen 1,000 mg 09/17/21 06:28 09/17/21 11:25 Acetaminophen 500 Mg Tablet BY MOUTH 1,000 mg Q8H PRN Administration Pain Rated 1-3 Albuterol 2 puff 09/17/21 05:27 Albuterol Sulfate (*Sp) Aerosol 1 Puff INHALATION Q4H PRN SOB/Wheezing Allopurinol 200 mg 09/17/21 08:00 09/17/21 08:43 Allopurinol 100 Mg Tablet PO 200 mg DAILY@0800 ALEX Administration Alteplase, Recombinant 2 mg 09/18/21 04:44 Alteplase 2 Mg Vial (Cathflo) IV PUSH ONCE PRN Line Occlusion Ascorbic Acid 500 mg 09/17/21 09:00 09/17/21 08:43 Ascorbic Acid 500 Mg Tablet PO 500 mg DAILY ALEX Administration Aspirin 81 mg 09/17/21 09:00 09/17/21 08:43 Aspirin 81 Mg Enteric Tablet PO 81 mg DAILY ALEX Administration Clobetasol Propionate 1 applic 09/17/21 06:08 Clobetasol Propionate 0.05% Cream 30 Gm TOPICAL DAILY PRN Skin Irritation Cyproheptadine HCl 4 mg 09/17/21 09:00 09/17/21 17:43 Cyproheptadine Hcl 4 Mg Tablet PO 4 mg BID ALEX Administration Finasteride 5 mg 09/17/21 09:00 09/17/21 08:43 Finasteride 5 Mg Tablet PO 5 mg DAILY ALEX Administration Fish Oil 1 gm 09/17/21 09:00 09/17/21 08:43 Gibbs 3 Polyunsat Fatty Acids 1 Gm Cap PO 1 gm QAM ALEX Administration Dextrose/Sodium Chloride 1,000 mls @ 100 mls/hr 09/17/21 03:50 09/17/21 22:12 Dextrose 5% Sodium Chloride 0.45% IV CONT 100 mls/hr .Q10H ALEX Administration Ceftriaxone Sodium/Dextrose 1 gm in 50 mls @ 100 mls/hr 09/17/21 09:00 09/17/21 11:50 Rocephin 1 Gm/D5w 50 Ml IVPB Infused Q24H ALEX Infusion Magnesium Oxide 800 mg 09/17/21 09:00 09/17/21 17:42 Magnesium Oxide 400 Mg Tablet PO 800 mg BID ALEX Administration Morphine Sulfate 2 mg 09/17/21 03:50 09/17/21
[2021-09-18] MEDS: DEXTROSE 5%/0.45% SOD CHL 1,000 ML 100 ML IV CONT (07:31)
[2021-09-18] MEDS: MAGNESIUM SULF 2 GM/WATER 50ML 2 GM/50 ML BAG IVPB (08:36)
[2021-09-18] MEDS: CHOLECALCIFEROL 1,000 UNITS TABLET 2000 UNITS PO (10:39)
[2021-09-18] MEDS: allopurinoL 100 MG TABLET 200 MG PO (10:39)
[2021-09-18] MEDS: ASPIRIN 81 MG ENTERIC TABLET PO (10:39)
[2021-09-18] MEDS: OMEGA 3 POLYUNSAT FATTY ACIDS 1 GM CAP PO (10:39)
[2021-09-18] MEDS: SPIRONOLACTONE 25 MG TABLET PO ×2 (10:39→18:02)
[2021-09-18] MEDS: ASCORBIC ACID 500 MG TABLET PO (10:40)
[2021-09-18] MEDS: FINASTERIDE 5 MG TABLET PO (10:40)
[2021-09-18] MEDS: PANTOPRAZOLE 40 MG TABLET PO ×2 (10:40→18:03)
[2021-09-18] MEDS: MULTIVITAMINS THERAPEUTIC TAB (*BKC) 1 TABLET PO (10:40)
[2021-09-18] MEDS: VITAMIN B COMPLEX CAPSULE 1 CAP PO (10:40)
[2021-09-18] MEDS: VITAMIN E 400 UNIT CAPSULE PO (10:40)
[2021-09-18] MEDS: CYPROHEPTADINE HCL 4 MG TABLET PO ×2 (10:40→18:03)
[2021-09-18] MEDS: COLLAGENASE OINT 30 GM TUBE 1 APPLIC TOPICAL (10:41)
[2021-09-18] MEDS: MAGNESIUM OXIDE 400 MG TABLET 800 MG PO ×2 (10:42→18:02)
[2021-09-18] MEDS: ACETAMINOPHEN 500 MG TABLET 1000 MG BY MOUTH (10:50)
--- NOTE | 2021-09-18 14:12 | WPDGICN ---
Assessment and Plan Assessment and plan (1) Rectal bleeding: Code(s): K62.5 - Hemorrhage of anus and rectum Status: Acute Assessment and Plan: this is unchanged per no need of further intervention unless any changes anemia probably from underlying metastatic colon cancer and hematuria (2) Metastatic colon cancer to liver: Code(s): C18.9 - Malignant neoplasm of colon, unspecified; C78.7 - Secondary malignant neoplasm of liver and intrahepatic bile duct Status: Acute Assessment and Plan: by oncology at [facility] (3) Urinary tract infection: Code(s): N39.0 - Urinary tract infection, site not specified Status: Acute Assessment and Plan: treated (4) Hematuria: Code(s): R31.9 - Hematuria, unspecified Status: Acute Assessment and Plan: by urology (5) Urinary retention: Code(s): R33.9 - Retention of urine, unspecified Status: Acute (6) Anemia of chronic disease: Code(s): D63.8 - Anemia in other chronic diseases classified elsewhere Status: Acute (7) AJITH (acute kidney injury): Code(s): N17.9 - Acute kidney failure, unspecified Status: Acute GI Consult Note Consult date/time: 09/18/21 14:12 Reason for consult: metastatic colon cancer HPI: Flavio Méndez is a 76 year old male with past medical history of metastatic colon CA who required in the past surgery now has a colectomy, radiation and chemotherapy, currently on immunotherapy and seeing oncologist at [facility]. He also has minimal amount of blood in rectum but that is chronic and has not changed, stool output per ostomy is brown color.. She also is status post nephrostomy due to extrinsic mass compression of ureters and discharged about 1 week ago from another hospital with bladder infection and pneumonia. He is admitted after had a syncopal episode, found to have gross hematuria with hydronephrosis by CT scan. He is transferred here for urological evaluation. Blood work showed hemoglobin of 8, creatinine is 1.9. Review of Systems Review of Systems: Generalized weakness, weight loss. Constitutional: Constitutional: Reports fatigue, Reports fever(s), Reports lethargy and Reports weakness Eyes: Eyes: Denies change in vision ENT: Denies dysphagia, Denies vertigo, Denies dizziness and Denies odynophagia Cardiovascular: Cardiovascular: Reports syncope Respiratory: Respiratory: Denies cough Gastrointestinal: Gastrointestinal: Denies abdominal pain, Denies dyspepsia and Denies heartburn Genitourinary: Genitourinary: Reports hematuria Musculoskeletal: Musculoskeletal: Denies arthralgias Integumentary/Breasts: Skin/Breast: Denies rash Neurologic: Denies focal weakness and Denies Sensory deficit (Neuro) Psychiatric: Psychiatric: Reports no additional psychiatric complaints and Reports as per HPI Endocrine: Endocrine: Denies cold intolerance, Denies fatigue, Denies flushing, Denies heat intolerance, Denies polyphagia, Denies polydipsia and Denies palpitations Hematologic/Lymphatic: Hematologic/Lymphatic: Reports no additional hematologic/lymphatic complaints and Reports as per HPI Allergic/Immunologic: Allergic/Immunologic: Reports no additional allergic/immunologic complaints and Reports as per HPI PMFSH Past Medical History Medical History (Updated 09/18/21 @ 14:24 by Arjun Castañeda MD) History of colon cancer Hyperlipidemia Hypertension Metastatic colon cancer to liver Surgical History Surgical History History of surgery of liver partial liver removed and ablation due to metastasis of colorectal CA History of tonsillectomy Social History Social History Smoking status: Never smoker Second hand tobacco smoke exposure: No Alcohol intake: never Substance use: never Substance use type: does not use
--- NOTE | 2021-09-18 15:48 | PM.IMPN ---
Progress Note: A&P Assessment and Plan (1) Hydronephrosis, right: Code(s): N13.30 - Unspecified hydronephrosis Status: Acute Assessment and Plan: Bilateral hydronephrosis with urinary retention probably blood clot in the bladder CT abdomen and pelvis done in the [facility] the report of which is pending which was later obtained Bilateral ureteral stents are in place severe bilateral hydronephrosis and hydroureter the distal in the distant appear to be located within the soft tissue mass filling the retro physical space which appears to have increased since the prior study. The stents may be outside of the bladder. Koul distance of within the bladder there is soft tissue and her high numerous at the base of the bladder which could be all region further stent obstruction. Neurology consulted. He will need of Chan catheter placed for decompression. With penile bleed will have Urology base Chan catheter. Bladder scan done at bedside during the visit this morning showed approximately 300 cc of urine. Started on ceftriaxone Follow urine culture. Which is reordered Started on CBI by Urology. (2) Colon cancer: Code(s): C18.9 - Malignant neoplasm of colon, unspecified Status: Acute Assessment and Plan: Follow-up in outpatient setting Shows post colostomy placement (3) History of surgery of liver: Code(s): Z98.890 - Other specified postprocedural states Status: Acute Assessment and Plan: Unchanged (4) Hypertension: Code(s): I10 - Essential (primary) hypertension Status: Acute Assessment and Plan: Continue home medications hold spironolactone due to AJITH (5) New onset atrial fibrillation: Code(s): I48.91 - Unspecified atrial fibrillation Status: Acute Assessment and Plan: Slow ventricular response Continue to monitor (6) Rectal bleeding: Code(s): K62.5 - Hemorrhage of anus and rectum Status: Acute Assessment and Plan: Continue to monitor Transfuse as needed Coags reviewed With the colostomy not sure how far his rectal vault is present. Will consult GI for further evaluation CT abdomen pelvis done in the [facility] showed extensive soft tissue in the pelvis obscuring the margin of the rectum and posterior bladder wall and feeling the presacral space most likely represents colorectal carcinoma. Metastatic static disease finding were also noted for example large intramuscular mass within the left hip adductors that measures 6.1 x 7.7 cm increased in size from prior study. Perianal/perineal nodularity primary along the right of the gluteal fold as well as 3.2 x 2.7 cm mass anteriorly to the left pubis are compatible with metastatic implants. 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 3.5 x 5.3 cm right epicardial fat partially calcified mass also suspect for metastasis. There are numerous mildly enlarged retroperitoneal lymph nodes which are indeterminate but potentially metastatic given other findings. He is status post right hemicolectomy (7) AJITH (acute kidney injury): Code(s): N17.9 - Acute kidney failure, unspecified Status: Acute Assessment and Plan: Likely to be postobstructive uropathy Obstructive IV fluid Monitor renal function Urology consultation (8) Anemia of chronic disease: Code(s): D63.8 - Anemia in other chronic diseases classified elsewhere Status: Acute Assessment and Plan: Secondary to malignancy Transfuse as needed Hemoglobin stable currently will continue to monitor H&H Plan DVT prophylaxis contraindicated due to current bleeding issues Subjective Date/time seen: 09/18/21 15:48 Interval history: HPI:This is a 76-year-old male with past medical history significant for colon CA patient is status post nephrostomy due to ex
[2021-09-18] MEDS: DEXTROSE 5%/0.45% SOD CHL 1,000 ML 50 ML IV CONT (17:59)
[2021-09-18] MEDS: SIMVASTATIN 20 MG TABLET 40 MG PO (21:11)
[2021-09-18] MEDS: TAMSULOSIN HCL 0.4 MG CAPSULE PO (21:11)
[2021-09-18] MEDS: CENTRAL LINE FLUSH 10 ML IV PUSH (21:12)
[2021-09-19] VITALS (9 sets, daily range): BP systolic 98–114; BP diastolic 62–71; PULSE 63–89; RESP 16–20; TEMP 36.7–37.7; O2SAT 96–99
[2021-09-19] MEDS: DEXTROSE 5%/0.45% SOD CHL 1,000 ML 50 ML IV CONT (01:07)
[2021-09-19 06:13] LABS: Basophils Absolute Auto 0.1 K/mm3 (0.0-0.1); Basophils Percent Auto 0.4 % (0.2-1.2); Eosinophils Absolute Auto 0.3 K/mm3 (0-0.3); Eosinophils Percent Auto 2.6 % (0-4.4); Hematocrit 24.1 % (42.0-52.0); Hemoglobin 7.5 g/dL (14.0-18.0); Immature Granulocyte Absolute 0.22 K/mm3 (0.00-0.031); Immature Granulocyte Percent A 1.7 % (0-0.5); Lymphocytes Absolute Auto 0.83 K/mm3 (0.9-3.2); Lymphocytes Percent Auto 6.4 % (18.3-44.2); Mean Corpuscular HGB Conc 31.1 g/dl (32-36); Mean Corpuscular Hemoglobin 31.1 pg (26-34); Mean Platelet Volume 9.7 fl (7.4-10.4); Monocytes Absolute Auto 0.9 K/mm3 (0.1-0.6); Monocytes Percent Auto 6.7 % (2.6-8.5); Neutrophils Absolute Auto 10.7 K/mm3 (1.3-6.7); Neutrophils Percent Auto 82.2 % (45.5-73.1); Platelet Count Result 181 k/mm3 (150-375); Red Blood Count 2.41 M/mm3 (4.6-6.20); Red Cell Distribution Width 18.6 % (11.5-14.5)
[2021-09-19 06:25] LABS: Alanine Aminotransferase 16 U/L (6-50); Albumin Level 2.4 g/dL (3.5-5.1); Alkaline Phosphatase 98 U/L (38-126); Anion Gap 0 mmol/L (8-16); Aspartate Amino Transferase 38 U/L (17-59); Bilirubin,Total 0.1 mg/dL (0.2-1.3); Blood Urea Nitrogen 21 mg/dL (9-20); Calcium 7.6 mg/dL (8.4-10.2); Carbon Dioxide 31 mmol/L (22-30); Chloride 101 mmol/L (98-107); Estimated CRCL calculation 42 ml/min; Estimated Glomerular Filt Rate 50; Glucose 81 mg/dL (65-110); Magnesium 1.3 mg/dL (1.6-2.3); Sodium 132 mmol/L (137-145)
--- NOTE | 2021-09-19 06:53 | WPDUROPN2 ---
Progress Note: A&P Assessment and Plan (1) Urinary retention: Code(s): R33.9 - Retention of urine, unspecified Status: Acute (2) Hematuria: Code(s): R31.9 - Hematuria, unspecified Status: Acute (3) AJITH (acute kidney injury): Code(s): N17.9 - Acute kidney failure, unspecified Status: Acute Assessment and Plan: Renal function slightly improved today. Urine clear with CBI but bloody with hand-irrigation -> likely due to combination of pelvic radiation, indwelling bilateral uretal stent, pelvic mass and possible UTI. Will get pelvic u/s to assess for clot retention. Continue Ceftriaxone, for now. 09/19/2021 Urine remains clear and serum creat. continues to improve. Will remove catheter for voiding trial today. Subjective Subjective Date/Time Seen: 09/19/21 06:53 Comfortable, no complaints Review of Systems Cardiovascular: Cardiovascular: Denies chest pain, Denies lightheadedness, Denies palpitations and Denies dyspnea Respiratory: Respiratory: Denies dyspnea Gastrointestinal: Gastrointestinal: Denies diarrhea, Denies nausea and Denies vomiting Genitourinary: Genitourinary: Denies hematuria and Denies dysuria Endocrine: Endocrine: Denies palpitations Exam Const: General: no acute distress Resp: Effort & Inspection: normal respiratory effort GI: Inspection: non-distended GI Palp: No abdominal tenderness and No Guarding due to palpation present (GI) Auscultation: normal bowel sounds Urinary Catheter: Urinary Catheter: patent and draining and urine clear Objective Data Vital Signs Vital Signs: Vital Signs - 24 hr 09/18/21 11:15 09/18/21 08:00 09/18/21 08:00 Temperature Pulse Rate 92 92 Respiratory Rate 14 Blood Pressure Pulse Oximetry 95 Oxygen Delivery Room Air Room Air 09/18/21 11:34 09/18/21 14:00 09/18/21 20:00 Temperature 97.3 F L Pulse Rate 75 75 Respiratory Rate 18 18 Blood Pressure 98/64 L Pulse Oximetry 98 98 Oxygen Delivery Room Air Room Air 09/18/21 22:00 09/18/21 20:00 09/19/21 00:00 Temperature 98.4 F Pulse Rate 84 70 80 Respiratory Rate 16 Blood Pressure 111/63 Pulse Oximetry 96 Oxygen Delivery 09/19/21 04:28 09/19/21 06:00 Temperature 99.6 F Pulse Rate 74 86 Respiratory Rate 16 Blood Pressure 98/62 L Pulse Oximetry 96 Oxygen Delivery Intake/Output Intake/Output: Intake & Output 09/16/21 09/17/21 09/18/21 09/19/21 23:59 23:59 23:59 23:59 Intake Total 1540 7102 1550 Output Total 28635 4650 Balance 6696 -1301 -2194 Meds/Results Medications: Active Medications Generic Name Dose Route Start Last Admin Trade Name Freq PRN Reason Stop Dose Admin Acetaminophen 1,000 mg 09/17/21 06:28 09/18/21 10:50 Acetaminophen 500 Mg Tablet BY MOUTH 1,000 mg Q8H PRN Administration Pain Rated 1-3 Albuterol 2 puff 09/17/21 05:27 Albuterol Sulfate (*Sp) Aerosol 1 Puff INHALATION Q4H PRN SOB/Wheezing Allopurinol 200 mg 09/17/21 08:00 09/18/21 10:39 Allopurinol 100 Mg Tablet PO 200 mg DAILY@0800 ALEX Administration Alteplase, Recombinant 2 mg 09/18/21 04:44 Alteplase 2 Mg Vial (Cathflo) IV PUSH ONCE PRN Line Occlusion Ascorbic Acid 500 mg 09/17/21 09:00 09/18/21 10:40 Ascorbic Acid 500 Mg Tablet PO 500 mg DAILY ALEX Administration Aspirin 81 mg 09/17/21 09:00 09/18/21 10:39 Aspirin 81 Mg Enteric Tablet PO 81 mg DAILY ALEX Administration Clobetasol Propionate 1 applic 09/17/21 06:08 Clobetasol Propionate 0.05% Cream 30 Gm TOPICAL DAILY PRN Skin Irritation Collagenase 1 applic 09/18/21 09:00 09/18/21 10:41 Collagenase Oint 30 Gm Tube TOPICAL 1 applic QAM ALEX Administration Cyproheptadine HCl 4 mg 09/17/21 09:00 09/18/21 18:03 Cyproheptadine Hcl 4 Mg Tablet PO 4 mg BID ALEX Administration Finasteride 5 mg 09/17/21 09:00 09/18/21 10:40 Finaster
[2021-09-19] MEDS: MAGNESIUM SULF 2 GM/WATER 50ML 2 GM/50 ML BAG IVPB (08:28)
[2021-09-19] MEDS: PANTOPRAZOLE 40 MG TABLET PO ×2 (08:50→17:45)
[2021-09-19] MEDS: CYPROHEPTADINE HCL 4 MG TABLET PO ×2 (08:50→17:45)
[2021-09-19] MEDS: VITAMIN B COMPLEX CAPSULE 1 CAP PO (08:50)
[2021-09-19] MEDS: SPIRONOLACTONE 25 MG TABLET PO ×2 (08:50→17:45)
[2021-09-19] MEDS: allopurinoL 100 MG TABLET 200 MG PO (08:50)
[2021-09-19] MEDS: VITAMIN E 400 UNIT CAPSULE PO (08:50)
[2021-09-19] MEDS: ASPIRIN 81 MG ENTERIC TABLET PO (08:50)
[2021-09-19] MEDS: CHOLECALCIFEROL 1,000 UNITS TABLET 2000 UNITS PO (08:50)
[2021-09-19] MEDS: ASCORBIC ACID 500 MG TABLET PO (08:50)
[2021-09-19] MEDS: OMEGA 3 POLYUNSAT FATTY ACIDS 1 GM CAP PO (08:50)
[2021-09-19] MEDS: MULTIVITAMINS THERAPEUTIC TAB (*BKC) 1 TABLET PO (08:51)
[2021-09-19] MEDS: FINASTERIDE 5 MG TABLET PO (08:51)
[2021-09-19] MEDS: MAGNESIUM OXIDE 400 MG TABLET 800 MG PO ×2 (08:51→17:40)
[2021-09-19] MEDS: CENTRAL LINE FLUSH 10 ML IV PUSH ×3 (08:52→20:47)
[2021-09-19] MEDS: CLOBETASOL PROPIONATE 0.05% CREAM 30 GM 1 APPLIC TOPICAL (08:52)
--- NOTE | 2021-09-19 10:43 | PCOTNOTE ---
Attempted to see patient this am, however patient and refused. Upon entering and providing introduction, patient turned to and asked, Is this what we want? asked, When will physical therapy be in? He needs to be up and walking. Pt not concerned with ADL performance at this time and requested for physical therapy. Called PT habilitation assistant and notified and patient physical therapy was on the way at this time. Pt not seen for this reason.
[2021-09-19] MEDS: COLLAGENASE OINT 30 GM TUBE 1 APPLIC TOPICAL (12:27)
--- NOTE | 2021-09-19 14:21 | PM.IMPN ---
Progress Note: A&P Assessment and Plan (1) Hydronephrosis, right: Code(s): N13.30 - Unspecified hydronephrosis Status: Acute Assessment and Plan: Bilateral hydronephrosis with urinary retention probably blood clot in the bladder CT abdomen and pelvis done in the [facility] the report of which is pending which was later obtained Bilateral ureteral stents are in place severe bilateral hydronephrosis and hydroureter the distal in the distant appear to be located within the soft tissue mass filling the retro physical space which appears to have increased since the prior study. The stents may be outside of the bladder. Koul distance of within the bladder there is soft tissue and her high numerous at the base of the bladder which could be all region further stent obstruction. Neurology consulted. He will need of Chan catheter placed for decompression. With penile bleed will have Urology base Chan catheter. Bladder scan done at bedside during the visit this morning showed approximately 300 cc of urine. Started on ceftriaxone Follow urine culture. Which is reordered Started on CBI by Urology 09/18/2021 Urine culture followed up with [facility] today and was no growth to date Continue to monitor for any further recurrence of his hematuria Appreciate urology help (2) Colon cancer: Code(s): C18.9 - Malignant neoplasm of colon, unspecified Status: Acute Assessment and Plan: Follow-up in outpatient setting Shows post colostomy placement (3) History of surgery of liver: Code(s): Z98.890 - Other specified postprocedural states Status: Acute Assessment and Plan: Unchanged (4) Hypertension: Code(s): I10 - Essential (primary) hypertension Status: Acute Assessment and Plan: Continue home medications hold spironolactone due to AJITH (5) New onset atrial fibrillation: Code(s): I48.91 - Unspecified atrial fibrillation Status: Acute Assessment and Plan: Slow ventricular response Continue to monitor (6) Rectal bleeding: Code(s): K62.5 - Hemorrhage of anus and rectum Status: Acute Assessment and Plan: Continue to monitor Transfuse as needed Coags reviewed With the colostomy not sure how far his rectal vault is present. Will consult GI for further evaluation CT abdomen pelvis done in the [facility] showed extensive soft tissue in the pelvis obscuring the margin of the rectum and posterior bladder wall and feeling the presacral space most likely represents colorectal carcinoma. Metastatic static disease finding were also noted for example large intramuscular mass within the left hip adductors that measures 6.1 x 7.7 cm increased in size from prior study. Perianal/perineal nodularity primary along the right of the gluteal fold as well as 3.2 x 2.7 cm mass anteriorly to the left pubis are compatible with metastatic implants. 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 3.5 x 5.3 cm right epicardial fat partially calcified mass also suspect for metastasis. There are numerous mildly enlarged retroperitoneal lymph nodes which are indeterminate but potentially metastatic given other findings. He is status post right hemicolectomy (7) AJITH (acute kidney injury): Code(s): N17.9 - Acute kidney failure, unspecified Status: Acute Assessment and Plan: Likely to be postobstructive uropathy Obstructive IV fluid Monitor renal function Urology consultation (8) Anemia of chronic disease: Code(s): D63.8 - Anemia in other chronic diseases classified elsewhere Status: Acute Assessment and Plan: Secondary to malignancy Transfuse as needed Hemoglobin stable currently will continue to monitor H&H Plan DVT prophylaxis contraindicated due to current bleeding is
[2021-09-19] MEDS: PSYLLIUM SUGAR FREE POWDER PACKET 1 PACKET PO (18:25)
[2021-09-19] MEDS: SIMVASTATIN 20 MG TABLET 40 MG PO (20:47)
[2021-09-19] MEDS: TAMSULOSIN HCL 0.4 MG CAPSULE PO (20:47)
[2021-09-20] VITALS (13 sets, daily range): BP systolic 104–127; BP diastolic 56–71; PULSE 57–92; RESP 16–20; TEMP 36.2–36.8; O2SAT 96–100
[2021-09-20] MEDS: DEXTROSE 5%/0.45% SOD CHL 1,000 ML 50 ML IV CONT (01:00)
[2021-09-20] MEDS: CENTRAL LINE FLUSH 10 ML IV PUSH ×2 (05:33→20:51)
[2021-09-20 05:39] LABS: Basophils Absolute Auto 0.1 K/mm3 (0.0-0.1); Basophils Percent Auto 0.4 % (0.2-1.2); Eosinophils Absolute Auto 0.5 K/mm3 (0-0.3); Eosinophils Percent Auto 3.9 % (0-4.4); Immature Granulocyte Absolute 0.27 K/mm3 (0.00-0.031); Immature Granulocyte Percent A 2.1 % (0-0.5); Lymphocytes Absolute Auto 0.86 K/mm3 (0.9-3.2); Lymphocytes Percent Auto 6.7 % (18.3-44.2); Mean Corpuscular HGB Conc 31.4 g/dl (32-36); Mean Corpuscular Hemoglobin 31.5 pg (26-34); Mean Corpuscular Volume 100.5 fl (80-100); Mean Platelet Volume 9.2 fl (7.4-10.4); Monocytes Absolute Auto 1.2 K/mm3 (0.1-0.6); Monocytes Percent Auto 9.3 % (2.6-8.5); Neutrophils Percent Auto 77.6 % (45.5-73.1); Platelet Count Result 172 k/mm3 (150-375); Red Blood Count 2.19 M/mm3 (4.6-6.20); Red Cell Distribution Width 18.4 % (11.5-14.5); White Blood Count 12.8 K/mm3 (4.5-10.0)
[2021-09-20 05:51] LABS: Hemoglobin 6.9 g/dL (14.0-18.0)
[2021-09-20 06:04] LABS: Alanine Aminotransferase 16 U/L (6-50); Albumin Level 2.2 g/dL (3.5-5.1); Alkaline Phosphatase 93 U/L (38-126); Anion Gap 0 mmol/L (8-16); Aspartate Amino Transferase 36 U/L (17-59); Bilirubin,Total 0.1 mg/dL (0.2-1.3); Blood Urea Nitrogen 33 mg/dL (9-20); Calcium 7.8 mg/dL (8.4-10.2); Carbon Dioxide 31 mmol/L (22-30); Chloride 99 mmol/L (98-107); Estimated CRCL calculation 39 ml/min; Estimated Glomerular Filt Rate 46; Glucose 77 mg/dL (65-110); Magnesium 1.5 mg/dL (1.6-2.3); Potassium 4.2 mmol/L (3.4-5.0); Sodium 130 mmol/L (137-145)
--- NOTE | 2021-09-20 07:05 | WPDUROPN2 ---
Progress Note: A&P Assessment and Plan (1) Urinary retention: Code(s): R33.9 - Retention of urine, unspecified Status: Acute (2) Hematuria: Code(s): R31.9 - Hematuria, unspecified Status: Acute (3) AJITH (acute kidney injury): Code(s): N17.9 - Acute kidney failure, unspecified Status: Acute Assessment and Plan: Renal function slightly improved today. Urine clear with CBI but bloody with hand-irrigation -> likely due to combination of pelvic radiation, indwelling bilateral uretal stent, pelvic mass and possible UTI. Will get pelvic u/s to assess for clot retention. Continue Ceftriaxone, for now. 09/19/2021 Urine remains clear and serum creat. continues to improve. Will remove catheter for voiding trial today. 09/20/2021 Doing well with catheter out - no retention or significant hematuria Discharge anytime from our standpoint. Due for bilat. ureteral stent exchange in September - will arrange as outpatient. Subjective Subjective Date/Time Seen: 09/20/21 07:05 Doing well with catheter out - scan hematuria and no retention Review of Systems Cardiovascular: Cardiovascular: Denies chest pain, Denies lightheadedness, Denies palpitations and Denies dyspnea Respiratory: Respiratory: Denies dyspnea Gastrointestinal: Gastrointestinal: Denies diarrhea, Denies nausea and Denies vomiting Genitourinary: Genitourinary: Denies hematuria and Denies dysuria Endocrine: Endocrine: Denies palpitations Exam Const: General: no acute distress Resp: Effort & Inspection: normal respiratory effort GI: Inspection: non-distended GI Palp: No abdominal tenderness and No Guarding due to palpation present (GI) Auscultation: normal bowel sounds Objective Data Vital Signs Vital Signs: Vital Signs - 24 hr 09/19/21 08:00 09/19/21 14:00 09/19/21 08:00 Temperature 99.9 F H Pulse Rate 75 88 Respiratory Rate 20 Blood Pressure 114/69 Pulse Oximetry 96 99 Oxygen Delivery Room Air 09/19/21 12:00 09/19/21 16:00 09/19/21 22:00 Temperature 98.0 F Pulse Rate 89 63 89 Respiratory Rate 18 Blood Pressure 109/71 Pulse Oximetry 96 Oxygen Delivery 09/19/21 20:00 09/19/21 20:00 09/20/21 00:00 Temperature Pulse Rate 76 92 Respiratory Rate Blood Pressure Pulse Oximetry Oxygen Delivery Room Air 09/20/21 04:00 09/20/21 05:27 Temperature 97.6 F Pulse Rate 75 86 Respiratory Rate 18 Blood Pressure 104/69 Pulse Oximetry 98 Oxygen Delivery Intake/Output Intake/Output: Intake & Output 09/17/21 09/18/21 09/19/21 09/20/21 23:59 23:59 23:59 23:59 Intake Total 1540 7102 3690 100 Output Total 31446 5950 50 Balance 6253 -4008 -8507 50 Meds/Results Medications: Active Medications Generic Name Dose Route Start Last Admin Trade Name Freq PRN Reason Stop Dose Admin Acetaminophen 1,000 mg 09/17/21 06:28 09/18/21 10:50 Acetaminophen 500 Mg Tablet BY MOUTH 1,000 mg Q8H PRN Administration Pain Rated 1-3 Albuterol 2 puff 09/17/21 05:27 Albuterol Sulfate (*Sp) Aerosol 1 Puff INHALATION Q4H PRN SOB/Wheezing Allopurinol 200 mg 09/17/21 08:00 09/19/21 08:50 Allopurinol 100 Mg Tablet PO 200 mg DAILY@0800 ALEX Administration Alteplase, Recombinant 2 mg 09/18/21 04:44 Alteplase 2 Mg Vial (Cathflo) IV PUSH ONCE PRN Line Occlusion Ascorbic Acid 500 mg 09/17/21 09:00 09/19/21 08:50 Ascorbic Acid 500 Mg Tablet PO 500 mg DAILY ALEX Administration Aspirin 81 mg 09/17/21 09:00 09/19/21 08:50 Aspirin 81 Mg Enteric Tablet PO 81 mg DAILY ALEX Administration Clobetasol Propionate 1 applic 09/17/21 06:08 09/19/21 08:52 Clobetasol Propionate 0.05% Cream 30 Gm TOPICAL 1 applic DAILY PRN Administration Skin Irritation Collagenase 1 applic 09/18/21 09:00 09/19/21 12:27 Collagenase Oint 30 Gm Tube TOPICAL 1 applic QAM ALEX Administration Cy
[2021-09-20] MEDS: SODIUM CHLORIDE 0.9% IV 250 ML 30 ML IV CONT (08:52)
[2021-09-20] MEDS: CHOLECALCIFEROL 1,000 UNITS TABLET 2000 UNITS PO (08:53)
[2021-09-20] MEDS: VITAMIN B COMPLEX CAPSULE 1 CAP PO (08:53)
[2021-09-20] MEDS: PANTOPRAZOLE 40 MG TABLET PO ×2 (08:53→17:45)
[2021-09-20] MEDS: FINASTERIDE 5 MG TABLET PO (08:53)
[2021-09-20] MEDS: MAGNESIUM OXIDE 400 MG TABLET 800 MG PO ×2 (08:53→17:45)
[2021-09-20] MEDS: ASCORBIC ACID 500 MG TABLET PO (08:53)
[2021-09-20] MEDS: allopurinoL 100 MG TABLET 200 MG PO (08:53)
[2021-09-20] MEDS: CYPROHEPTADINE HCL 4 MG TABLET PO ×2 (08:53→17:45)
[2021-09-20] MEDS: PSYLLIUM SUGAR FREE POWDER PACKET 1 PACKET PO (08:54)
[2021-09-20] MEDS: VITAMIN E 400 UNIT CAPSULE PO (08:54)
[2021-09-20] MEDS: ASPIRIN 81 MG ENTERIC TABLET PO (08:54)
[2021-09-20] MEDS: OMEGA 3 POLYUNSAT FATTY ACIDS 1 GM CAP PO (08:54)
[2021-09-20] MEDS: MULTIVITAMINS THERAPEUTIC TAB (*BKC) 1 TABLET PO (08:54)
[2021-09-20] MEDS: SPIRONOLACTONE 25 MG TABLET PO ×2 (08:54→17:46)
[2021-09-20] MEDS: COLLAGENASE OINT 30 GM TUBE 1 APPLIC TOPICAL (08:55)
[2021-09-20] MEDS: TUBING, BLOOD PLUM PUMP TUBING 1 EACH XX (08:55)
[2021-09-20] MEDS: ACETAMINOPHEN 500 MG TABLET 1000 MG BY MOUTH (11:15)
--- NOTE | 2021-09-20 14:38 | PM.IMPN ---
Progress Note: A&P Assessment and Plan (1) Hydronephrosis, right: Code(s): N13.30 - Unspecified hydronephrosis Status: Acute Assessment and Plan: Bilateral hydronephrosis with urinary retention probably blood clot in the bladder CT abdomen and pelvis done in the [facility] the report of which is pending which was later obtained Bilateral ureteral stents are in place severe bilateral hydronephrosis and hydroureter the distal in the distant appear to be located within the soft tissue mass filling the retro physical space which appears to have increased since the prior study. The stents may be outside of the bladder. Koul distance of within the bladder there is soft tissue and her high numerous at the base of the bladder which could be all region further stent obstruction. Neurology consulted. He will need of Chan catheter placed for decompression. With penile bleed will have Urology base Chan catheter. Bladder scan done at bedside during the visit this morning showed approximately 300 cc of urine. Started on ceftriaxone Follow urine culture. Which is reordered Started on CBI by Urology 09/18/2021 Urine culture followed up with [facility] today and was no growth to date Continue to monitor for any further recurrence of his hematuria Appreciate urology help (2) Colon cancer: Code(s): C18.9 - Malignant neoplasm of colon, unspecified Status: Acute Assessment and Plan: Follow-up in outpatient setting Shows post colostomy placement (3) History of surgery of liver: Code(s): Z98.890 - Other specified postprocedural states Status: Acute Assessment and Plan: Unchanged (4) Hypertension: Code(s): I10 - Essential (primary) hypertension Status: Acute Assessment and Plan: Continue home medications hold spironolactone due to AJITH (5) New onset atrial fibrillation: Code(s): I48.91 - Unspecified atrial fibrillation Status: Acute Assessment and Plan: Slow ventricular response Continue to monitor (6) Rectal bleeding: Code(s): K62.5 - Hemorrhage of anus and rectum Status: Acute Assessment and Plan: Continue to monitor Transfuse as needed Coags reviewed With the colostomy not sure how far his rectal vault is present. Will consult GI for further evaluation CT abdomen pelvis done in the [facility] showed extensive soft tissue in the pelvis obscuring the margin of the rectum and posterior bladder wall and feeling the presacral space most likely represents colorectal carcinoma. Metastatic static disease finding were also noted for example large intramuscular mass within the left hip adductors that measures 6.1 x 7.7 cm increased in size from prior study. Perianal/perineal nodularity primary along the right of the gluteal fold as well as 3.2 x 2.7 cm mass anteriorly to the left pubis are compatible with metastatic implants. 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 3.5 x 5.3 cm right epicardial fat partially calcified mass also suspect for metastasis. There are numerous mildly enlarged retroperitoneal lymph nodes which are indeterminate but potentially metastatic given other findings. He is status post right hemicolectomy (7) AJITH (acute kidney injury): Code(s): N17.9 - Acute kidney failure, unspecified Status: Acute Assessment and Plan: Likely to be postobstructive uropathy Obstructive IV fluid Monitor renal function Urology consultation (8) Anemia of chronic disease: Code(s): D63.8 - Anemia in other chronic diseases classified elsewhere Status: Acute Assessment and Plan: Secondary to malignancy Transfuse as needed Hemoglobin stable currently will continue to monitor H&H Plan DVT prophylaxis contraindicated due to current bleeding is
[2021-09-20 14:46] LABS: Hematocrit 25.3 % (42.0-52.0)
[2021-09-20] MEDS: MAGNESIUM SULFATE 3GM/D5W100ML 3 GM/100 ML BAG IVPB (15:49)
[2021-09-20] MEDS: SIMVASTATIN 20 MG TABLET 40 MG PO (20:51)
[2021-09-20] MEDS: TAMSULOSIN HCL 0.4 MG CAPSULE PO (20:51)
[2021-09-21] VITALS (8 sets, daily range): BP systolic 102–128; BP diastolic 68–77; PULSE 71–75; RESP 18; TEMP 34.7–37; O2SAT 95–99
[2021-09-21] MEDS: DEXTROSE 5%/0.45% SOD CHL 1,000 ML 50 ML IV CONT ×2 (03:40→20:29)
[2021-09-21] MEDS: CENTRAL LINE FLUSH 10 ML IV PUSH ×2 (05:57→20:28)
--- NOTE | 2021-09-21 07:34 | WPDUROPN2 ---
Progress Note: A&P Assessment and Plan (1) Urinary retention: Code(s): R33.9 - Retention of urine, unspecified Status: Acute (2) Hematuria: Code(s): R31.9 - Hematuria, unspecified Status: Acute (3) AJITH (acute kidney injury): Code(s): N17.9 - Acute kidney failure, unspecified Status: Acute Assessment and Plan: Renal function slightly improved today. Urine clear with CBI but bloody with hand-irrigation -> likely due to combination of pelvic radiation, indwelling bilateral uretal stent, pelvic mass and possible UTI. Will get pelvic u/s to assess for clot retention. Continue Ceftriaxone, for now. 09/19/2021 Urine remains clear and serum creat. continues to improve. Will remove catheter for voiding trial today. 09/20/2021 Doing well with catheter out - no retention or significant hematuria Discharge anytime from our standpoint. Due for bilat. ureteral stent exchange in September - will arrange as outpatient. 09/21/2021 Continues to have very scant hematuria without retention - no clinically significant at this point (likley due to indwelling stents and radiation cystitis). No plans for intervention Subjective Subjective Date/Time Seen: 09/21/21 07:34 Comfortable, no c/o difficulty urinating Review of Systems Cardiovascular: Cardiovascular: Denies chest pain, Denies lightheadedness, Denies palpitations and Denies dyspnea Respiratory: Respiratory: Denies dyspnea Gastrointestinal: Gastrointestinal: Denies diarrhea, Denies nausea and Denies vomiting Genitourinary: Genitourinary: Denies hematuria and Denies dysuria Endocrine: Endocrine: Denies palpitations Exam Const: General: no acute distress Resp: Effort & Inspection: normal respiratory effort GI: Inspection: non-distended GI Palp: No abdominal tenderness and No Guarding due to palpation present (GI) Auscultation: normal bowel sounds Objective Data Vital Signs Vital Signs: Vital Signs - 24 hr 09/20/21 08:35 09/20/21 09:00 09/20/21 10:00 Temperature 97.8 F 97.8 F 98.2 F Pulse Rate 74 76 57 L Respiratory Rate 18 18 16 Blood Pressure 106/59 L 106/56 L 104/62 Pulse Oximetry 96 100 99 Oxygen Delivery 09/20/21 11:00 09/20/21 12:00 09/20/21 08:00 Temperature 97.9 F 98.1 F Pulse Rate 66 66 66 Respiratory Rate 18 18 Blood Pressure 112/58 L 108/56 L Pulse Oximetry 99 99 Oxygen Delivery 09/20/21 08:00 09/20/21 14:00 09/20/21 12:00 Temperature 98.1 F Pulse Rate 66 78 78 Respiratory Rate 18 20 Blood Pressure 108/64 Pulse Oximetry 99 97 Oxygen Delivery Room Air 09/20/21 16:00 09/20/21 22:00 09/20/21 20:00 Temperature 97.2 F L Pulse Rate 78 70 61 Respiratory Rate 18 Blood Pressure 127/71 Pulse Oximetry 99 Oxygen Delivery 09/20/21 20:00 09/21/21 00:00 09/21/21 04:00 Temperature Pulse Rate 73 75 Respiratory Rate Blood Pressure Pulse Oximetry Oxygen Delivery Room Air 09/21/21 06:00 Temperature 98.6 F Pulse Rate 72 Respiratory Rate 18 Blood Pressure 102/68 Pulse Oximetry 95 Oxygen Delivery Intake/Output Intake/Output: Intake & Output 09/18/21 09/19/21 09/20/21 09/21/21 23:59 23:59 23:59 23:59 Intake Total 7102 3740 3074 100 Output Total [address] [place] [id number] [phone] 100 Meds/Results Medications: Active Medications Generic Name Dose Route Start Last Admin Trade Name Freq PRN Reason Stop Dose Admin Acetaminophen 1,000 mg 09/17/21 06:28 09/20/21 11:15 Acetaminophen 500 Mg Tablet BY MOUTH 1,000 mg Q8H PRN Administration Pain Rated 1-3 Albuterol 2 puff 09/17/21 05:27 Albuterol Sulfate (*Sp) Aerosol 1 Puff INHALATION Q4H PRN SOB/Wheezing Allopurinol 200 mg 09/17/21 08:00 09/20/21 08:53 Allopurinol 100 Mg Tablet PO 200 mg DAILY@0800 ALEX Administration Alteplase, Recombinant 2 mg 09/18/21 04:44 Alteplase 2 Mg Vial (Cathflo) IV PUSH ONCE PRN
[2021-09-21] MEDS: FINASTERIDE 5 MG TABLET PO (09:03)
[2021-09-21] MEDS: CYPROHEPTADINE HCL 4 MG TABLET PO ×2 (09:03→17:52)
[2021-09-21] MEDS: VITAMIN B COMPLEX CAPSULE 1 CAP PO (09:03)
[2021-09-21] MEDS: CHOLECALCIFEROL 1,000 UNITS TABLET 2000 UNITS PO (09:03)
[2021-09-21] MEDS: allopurinoL 100 MG TABLET 200 MG PO (09:03)
[2021-09-21] MEDS: MULTIVITAMINS THERAPEUTIC TAB (*BKC) 1 TABLET PO (09:03)
[2021-09-21] MEDS: MAGNESIUM OXIDE 400 MG TABLET 800 MG PO ×2 (09:03→17:52)
[2021-09-21] MEDS: PSYLLIUM SUGAR FREE POWDER PACKET 1 PACKET PO (09:04)
[2021-09-21] MEDS: OMEGA 3 POLYUNSAT FATTY ACIDS 1 GM CAP PO (09:04)
[2021-09-21] MEDS: LIDOCAINE 5% PATCH 2 PATCH TRANSDERM (09:04)
[2021-09-21] MEDS: PANTOPRAZOLE 40 MG TABLET PO ×2 (09:04→17:52)
[2021-09-21] MEDS: SPIRONOLACTONE 25 MG TABLET PO ×2 (09:04→17:52)
[2021-09-21] MEDS: VITAMIN E 400 UNIT CAPSULE PO (09:04)
[2021-09-21] MEDS: ASPIRIN 81 MG ENTERIC TABLET PO (09:04)
[2021-09-21] MEDS: ASCORBIC ACID 500 MG TABLET PO (09:04)
[2021-09-21] MEDS: COLLAGENASE OINT 30 GM TUBE 1 APPLIC TOPICAL (09:05)
[2021-09-21 09:35] LABS: Hematocrit 26.8 % (42.0-52.0); Hemoglobin 8.5 g/dL (14.0-18.0); Mean Corpuscular HGB Conc 31.7 g/dl (32-36); Mean Corpuscular Hemoglobin 30.8 pg (26-34); Mean Corpuscular Volume 97.1 fl (80-100); Mean Platelet Volume 9.3 fl (7.4-10.4); Platelet Count Result 204 k/mm3 (150-375); Red Blood Count 2.76 M/mm3 (4.6-6.20); Red Cell Distribution Width 19.8 % (11.5-14.5); White Blood Count 12.7 K/mm3 (4.5-10.0)
[2021-09-21 10:23] LABS: Anion Gap 5 mmol/L (8-16); Blood Urea Nitrogen 43 mg/dL (9-20); Carbon Dioxide 28 mmol/L (22-30); Chloride 101 mmol/L (98-107); Estimated CRCL calculation 33 ml/min; Estimated Glomerular Filt Rate 37; Glucose 136 mg/dL (65-110); Magnesium 1.9 mg/dL (1.6-2.3); Potassium 4.1 mmol/L (3.4-5.0); Sodium 134 mmol/L (137-145)
--- NOTE | 2021-09-21 10:48 | PCOTNOTE ---
Spoke with pt. and , decreasing OT treatment frequency to 2-3x/wk. and pt. communicated that pt. does not needs greater frequency of treatment, as assists pt. with any ADLs. and pt. educated on benefits of pt. maintaining independence in ADLs and reducing caregiver burden.
--- NOTE | 2021-09-21 13:49 | P.PNIM_ITS ---
Progress Note: A&P Assessment and Plan (1) Hydronephrosis, right: Code(s): N13.30 - Unspecified hydronephrosis Status: Acute Assessment and Plan: Bilateral hydronephrosis with urinary retention probably blood clot in the bladder CT [facility] the report of which is pending which was later obtained Bilateral ureteral stents are in place severe bilateral hydronephrosis and hydroureter the distal in the distant appear to be located within the soft tissue mass filling the retro physical space which appears to have increased since the prior study. The stents may be outside of the bladder. Koul distance of within the bladder there is soft tissue and her high numerous at the base of the bladder which could be all region further stent obstruction. Neurology consulted. He will need of Chan catheter placed for decompression. With penile bleed will have Urology base Chan catheter. Bladder scan done at bedside during the visit this morning showed approximately 300 cc of urine. Started on ceftriaxone Follow urine culture. Which is reordered Started on CBI by Urology 09/18/2021 Urine culture followed up with [facility] today and was no growth to date Continue to monitor for any further recurrence of his hematuria Appreciate urology help (2) Colon cancer: Code(s): C18.9 - Malignant neoplasm of colon, unspecified Status: Acute Assessment and Plan: Follow-up in outpatient setting Shows post colostomy placement (3) History of surgery of liver: Code(s): Z98.890 - Other specified postprocedural states Status: Acute Assessment and Plan: Unchanged (4) Hypertension: Code(s): I10 - Essential (primary) hypertension Status: Acute Assessment and Plan: Continue home medications hold spironolactone due to AJITH (5) New onset atrial fibrillation: Code(s): I48.91 - Unspecified atrial fibrillation Status: Acute Assessment and Plan: Slow ventricular response Continue to monitor (6) Rectal bleeding: Code(s): K62.5 - Hemorrhage of anus and rectum Status: Acute Assessment and Plan: Continue to monitor Transfuse as needed Coags reviewed With the colostomy not sure how far his rectal vault is present. Will consult GI for further evaluation CT abdomen pelvis [facility] showed extensive soft tissue in the pelvis obscuring the margin of the rectum and posterior bladder wall and feeling the presacral space most likely represents colorectal carcinoma. Metastatic static disease finding were also noted for example large intramuscular mass within the left hip adductors that measures 6.1 x 7.7 cm increased in size from prior study. Perianal/perineal nodularity primary along the right of the gluteal fold as well as 3.2 x 2.7 cm mass anteriorly to the left pubis are compatible with metastatic implants. 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 3.5 x 5.3 cm right epicardial fat partially calcified mass also suspect for metastasis. There are numerous mildly enlarged retroperitoneal lymph nodes which are indeterminate but potentially metastatic given other findings. He is status post right hemicolectomy (7) AJITH (acute kidney injury): Code(s): N17.9 - Acute kidney failure, unspecified Status: Acute Assessment and Plan: Likely to be postobstructive uropathy Obstructive IV fluid Monitor renal function Urology consul
--- NOTE | 2021-09-21 16:30 | WPDGIPROGNO ---
Progress Note: A&P Assessment and Plan (1) Rectal bleeding: Code(s): K62.5 - Hemorrhage of anus and rectum Status: Acute Assessment and Plan: this is chronic and only small amount. This is from known metastatic colon cancer no need of intervention follow-up with oncologist will sign off (2) Anemia of chronic disease: Code(s): D63.8 - Anemia in other chronic diseases classified elsewhere Status: Acute Assessment and Plan: multifactorial (he was here with hematuria, also has metastatic colon cancer, etc) (3) Hematuria: Code(s): R31.9 - Hematuria, unspecified Status: Acute Assessment and Plan: improved (4) Metastatic colon cancer to liver: Code(s): C18.9 - Malignant neoplasm of colon, unspecified; C78.7 - Secondary malignant neoplasm of liver and intrahepatic bile duct Status: Acute (5) Urinary tract infection: Code(s): N39.0 - Urinary tract infection, site not specified Status: Acute Subjective Date/time seen: 09/21/21 16:30 I was called again by primary because chronic blood in rectum however this is a chronic finding from patient that has been going on for quite sometime since he has metastatic colon cancer. Chan removed and noted small amount of dried blood in diaper but was from penis Review of Systems Review of Systems: All systems reviewed & are unremarkable except as noted in HPI and below (HPI) Exam Narrative: Patient is laying in bed Const: General: cooperative, comfortable, no acute distress, well developed, alert, awake and ill appearing chronically Nutritional Appearance: thin Orientation/consciousness: patient oriented x3 HENMT: Head: normal to inspection, normocephalic and atraumatic Ears: hearing grossly normal bilaterally Face and sinus: normal facial exam Eyes: General: appearance normal, both eyes and all related structures Neck: Neck: full ROM, no lymphadenopathy and no JVD Resp: Effort & Inspection: normal respiratory effort and able to speak in complete sentences Auscultation: clear to auscultation bilaterally Cardio: Rate: regular rate Heart sounds: S1 normal heart sound present GI: Inspection: other (Ostomy in place) GI Palp: Yes Soft to palpation, Yes No hepatosplenomegaly present and No Rebound tenderness present : Other: small amount of dried blood in diaper (from penis) Skin: Rashes: no rashes Wounds: no wounds Neuro: General: patient oriented x3 and CN's II-XI intact bilaterally Cognition (Neuro): normal cognition Speech: normal speech Motor exam (neuro): 5/5 motor strength present throughout Extrem: General: normal to inspection, full ROM, no joint enlargement and no pedal edema Objective Data Vital Signs Vital Signs: Vital Signs - 24 hr 09/20/21 22:00 09/20/21 20:00 09/20/21 20:00 Temperature 97.2 F L Pulse Rate 70 61 Respiratory Rate 18 Blood Pressure 127/71 Pulse Oximetry 99 Oxygen Delivery Room Air 09/21/21 00:00 09/21/21 04:00 09/21/21 06:00 Temperature 98.6 F Pulse Rate 73 75 72 Respiratory Rate 18 Blood Pressure 102/68 Pulse Oximetry 95 Oxygen Delivery 09/21/21 13:46 09/21/21 08:00 09/21/21 08:00 Temperature 94.4 F L Pulse Rate 71 71 71 Respiratory Rate 18 18 Blood Pressure 128/77 Pulse Oximetry 99 99 Oxygen Delivery Room Air Intake/Output Intake/Output: Intake & Output 09/18/21 09/19/21 09/20/21 09/21/21 23:59 23:59 23:59 23:59 Intake Total 7102 0020 3124 844 Output Total 82608 5950 610 Banner [phone] Meds/Results Medications: Active Medications Generic Name Dose Route Start Last Admin Trade Name Freq PRN Reason Stop Dose Admin Acetaminophen 1,000 mg 09/17/21 06:28 09/20/21 11:15 Acetaminophen 500 Mg Tablet BY MOUTH 1,000 mg Q8H PRN Administration Pain Rated 1-3 Albuterol 2 puff 09/17/21 05:27 Albuterol Sulfate (*Sp) Aerosol 1 Puff INHALATION Q4H PRN
[2021-09-21] MEDS: TAMSULOSIN HCL 0.4 MG CAPSULE PO (20:28)
[2021-09-21] MEDS: SIMVASTATIN 20 MG TABLET 40 MG PO (20:28)
[2021-09-22] MEDS: CENTRAL LINE FLUSH 10 ML IV PUSH (04:54)
[2021-09-22 05:15] VITALS: BP 120/67; PULSE 65; RESP 16; TEMP 36.1; O2SAT 99
[2021-09-22 06:16] LABS: Anion Gap 5 mmol/L (8-16); Blood Urea Nitrogen 43 mg/dL (9-20); Calcium 8.4 mg/dL (8.4-10.2); Carbon Dioxide 28 mmol/L (22-30); Chloride 101 mmol/L (98-107); Estimated CRCL calculation 31 ml/min; Estimated Glomerular Filt Rate 35; Glucose 76 mg/dL (65-110); Potassium 3.9 mmol/L (3.4-5.0); Sodium 134 mmol/L (137-145)
[2021-09-22] MEDS: ASPIRIN 81 MG ENTERIC TABLET PO (08:09)
[2021-09-22] MEDS: VITAMIN B COMPLEX CAPSULE 1 CAP PO (08:09)
[2021-09-22] MEDS: PANTOPRAZOLE 40 MG TABLET PO (08:09)
[2021-09-22] MEDS: OMEGA 3 POLYUNSAT FATTY ACIDS 1 GM CAP PO (08:09)
[2021-09-22] MEDS: allopurinoL 100 MG TABLET 200 MG PO (08:09)
[2021-09-22] MEDS: MAGNESIUM OXIDE 400 MG TABLET 800 MG PO (08:09)
[2021-09-22] MEDS: MULTIVITAMINS THERAPEUTIC TAB (*BKC) 1 TABLET PO (08:09)
[2021-09-22] MEDS: CHOLECALCIFEROL 1,000 UNITS TABLET 2000 UNITS PO (08:09)
[2021-09-22] MEDS: ASCORBIC ACID 500 MG TABLET PO (08:09)
[2021-09-22] MEDS: PSYLLIUM SUGAR FREE POWDER PACKET 1 PACKET PO (08:10)
[2021-09-22] MEDS: SPIRONOLACTONE 25 MG TABLET PO (08:10)
[2021-09-22] MEDS: VITAMIN E 400 UNIT CAPSULE PO (08:10)
[2021-09-22] MEDS: FINASTERIDE 5 MG TABLET PO (08:10)
[2021-09-22] MEDS: LIDOCAINE 5% PATCH 2 PATCH TRANSDERM (08:10)
[2021-09-22] MEDS: CYPROHEPTADINE HCL 4 MG TABLET PO (08:10)
[2021-09-22] MEDS: COLLAGENASE OINT 30 GM TUBE 1 APPLIC TOPICAL (08:11)
--- NOTE | 2021-09-22 11:30 | PM.DS ---
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 Patient had been? recently discharged from [facility] Patient with significant weight loss and generalized weakness.? Today patient had a syncopal episode and was taken back to the emergency room where he was found to have elevated creatinine.? Patient is being transferred to our hospital for urology consult.? Patient had a temperature of 102?.? States that has no recollection of events.? Preliminary workup is significant for hemoglobin of 8, hematocrit is 26, MCV is 99, creatinine is 1.9.? Patient denies any pain at this time. Hospital Course: ?on 09/20/2021 patient hemoglobin 6.9? patient was given 1 unit of pack RBC and today his Hgb 8.5,? patient was seen by Urology and suspect? hematuria most likely secondary? several possibly pelvic radiation,? indwelling bilateral stent, pelvic mass possibly UTI to further evaluate pelvic ultrasound is ordered to rule out blood clot,l and nursing staff? noticed rectal bleeding will again consulted GI, patient also complained pain in his hip but no trauma or fall, will applied Lidoderm, today patient is the pain in the hip is better, will have a PT OT evaluate the patient, will continue to monitor. today patient remains clinically stable his hemoglobin is stable, seen by urologist hematuria has resolved patient can be discharged home today Subjective Time Spent with Patient Time attestation: Total time spent providing and/or coordinating discharge services: Exam Narrative: Patient is comfortable, NAD HEENT: eyes are clear and none icteric LUNGS: normal respiratory effort ABD: not distended Lower extremities: no edema SKIN: nonjaundiced Neuro: grossly intact. DS: Data Data Completed and Pending Labs on day of discharge: Labs from last 24 hours 09/22/21 05:52 Sodium 134 L Potassium 3.9 Chloride 101 Carbon Dioxide 28 Anion Gap 5 L BUN 43 H Creatinine 1.90 H Estim Creat Clear Calc 31 Estimated GFR 35 L Glucose 76 Calcium 8.4 Discharge Plan Discharge Attending physician on discharge: Ramona Washington Consulting providers: Rodger Patel ; Arjun Castañeda Discharging Clinician: Ramona Washington Patient Disposition: Home Health Service Activity: as tolerated Diet: heart healthy Discharge Instructions: Per Care Coordination: Patient is current with [facility] Home Health services. Please resume HH orders at discharge. Please call to notify home health once discharged at RN please fax completed discharge instructions to [phone] Patient to follow up with his urologist as scheduled, patient to follow up with his primary care provider as soon as possible, patient is instructed if any symptoms worsen to go to nearest ER. Patient Instructions: Antibiotic Form, Urinary Retention in Men (GEN), Pain Management in Older Adults (DC), Continuous Bladder Irrigation (GEN), Blood Transfusion (DC) Stand Alone Forms: General Discharge Information Follow-up/Referrals: Rodger Patel MD [Physician] - Polly,JOE Chester [Primary Care Provider] - Arjun Castañeda MD [Physician] - Discharge Medications: [place] Antifungal (micon) 2 % Ointment 1 applic topical Q12HR Qty: 60 0RF lidocaine [Lidoderm] 5 % Adhesive Patch,Medicated 2 patch transdermal DAILY Qty: 5 0RF Metamucil Fiber Singles 3.4 gram Powder In Packet 1 packet PO DAILY Qty: 250 0RF Continued aspirin [Adult Low Dose Aspirin] 81 mg Tablet,Delayed Release (Dr/Ec) 81 mg PO DAILY cyproheptadine 4 mg Tablet 4 mg PO BID garlic [garlic oil] 1,000 mg Capsule 1,000 mg PO SHAWN
== END 2021-09-22 12:30 | disposition home health service (06) | DRG 699 ==
PROVIDERS: Internal Medicine; Nurse Practitioner; Admitting Provider Internal Medicine; PCP Physician Assistant; Visit Provider Family Medicine
DX: N30.41 Irradiation cystitis with hematuria (principal); C77.2 Secondary and unspecified malignant neoplasm of intra-abdominal lymph nodes; N17.9 Acute kidney failure, unspecified; K62.5 Hemorrhage of anus and rectum; N13.6 Pyonephrosis; R55 Syncope and collapse; R33.8 Other retention of urine; N39.498 Other specified urinary incontinence; E78.5 Hyperlipidemia, unspecified; I48.91 Unspecified atrial fibrillation; D63.0 Anemia in neoplastic disease; I10 Essential (primary) hypertension; Z85.038 Personal history of other malignant neoplasm of large intestine; Z85.53 Personal history of malignant neoplasm of renal pelvis; Z85.05 Personal history of malignant neoplasm of liver; Z98.890 Other specified postprocedural states
CPT/HCPCS: 36415; 36430; 71045; 76856; 80048; 80053; 83735; 85014; 85018; 85025; 85027; 85610; 85730; 86850; 86900; 86901; 86920; 87040; 96361; 96365; 96366; 96368; 96375; 97110; 97116; 97161; 97165; 97530; 97535; A9270; G0378; J0696; J1642; J2270; J3475; J7050; P9016